=== PATIENT | male | born 1965 | race Hispanic/Latino ===

== ENCOUNTER 2021-10-03 10:22 | Emergency (ER) | payer BC ==
--- OUTSIDE RECORDS SUMMARY | 2021-10-03 10:29 | XMS REPORT | Continuity of Care Document ---
:1965 Author Organization [facility] t Address [address] [place] [address] Care Team Providers Name Role Phone TANA VENEGAS Attending Clinician Unavailable Shantanu Dahl DO Attending Clinician Doctor Unassigned, Name Attending Clinician Unavailable Theo HOLGUIN Attending Clinician [facility] Attending Clinician Unavailable Yesika DOZIER Attending Clinician Unavailable [facility] Attending Clinician Unavailable Laci NUÑEZ Attending Clinician Cheri Garza MD Attending Clinician CHERI GARZA Attending Clinician Unavailable Everton CARTY Attending Clinician Unavailable Shoaib Thomason MA Attending Clinician Unavailable Payers Payer Name Policy Type Policy Number Effective Date Expiration Date S ource Problems Condition Condition Condition Status Onset Resolution Last Treating Co mments Source Name Details Category Date Date Treatment Clinician Date Primary Primary Disease Active Univers osteoarthr osteoarthr 2-24 it y of itis of itis of 00:00: [place] both knees both knees 00 Fl dical Branch Right knee Right knee Disease Active U nivers pain pain 1-26 ity of 00:00: [place] 00 [facility] Branch 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 it y of ciency ciency 00:00: [place] virus virus 00 Medical infection) infection) Br anch Elevated Elevated Disease Active Unive rs serum serum 1- [place] 00 [place] Allergies, Adverse Reactions, Alerts Allergy Allergy Status Severity Reaction(s) Onset Inactive Treating Comm ents Source Name Type Date Date Clinician NO KNOWN Drug Active Univers ALLERGIE Class ity of S [facility] Social History Social Habit Start Date Stop Date Quantity Comments Source Exposure to Not sure University of SARS-CoV-2 [facility] (event) Branch Tobacco use and 2020-03-13 2020-03-13 Never used Universit y of exposure 00:00:00 00:00:00 [facility] Alcohol intake 2020-03-13 2020-03-13 Current drinker Unive rsity of 00:00:00 00:00:00 of alcohol [facility] (finding) [place] Alcohol Comment 2015-09-05 2015-09-05 drinks case of Unive rsity of 00:00:00 00:00:00 beer on weekends [facility] dical [place] Tobacco Comment 2006-05-13 2006-05-13 social Universit y of 00:00:00 00:00:00 [facility] History of 2006-02-04 Smoker University of tobacco use 00:00:00 [facility] [birth year] Universit y of 00:00:00 00:00:00 [facility] Smoking Status Start Date Stop Date Source Former smoker 2020-03-13 00:00:00 2020-03-13 00:00:00 Universi ty of [facility] Medications Ordered Filled Start Stop Current Ordering Indication Dosage Frequency Signature Comments Components Source Medication Medication Date Date Medication? Clinician (SIG) Name Name esomeprazol 2019-08 Yes 40mg Take 1 Univ ers e (NEXIUM) 0-23 capsule by ity of 40 mg 00:00: mouth [place] capsule 00 daily with Medica l breakfast. Branch darunavir-c 2019-08 Yes [id number] 1 tablet Univers obicistat 0-23 po once ity of (PREZCOBIX) 00:00: daily with [place] 800-150 00 food Medical mg-mg per Branch tablet emtricitabi 2019-08 Yes [id number] 1{tbl} Take 1 Univers ne-tenofovi 0-23 tablet by ity of r alafen 00:00: mouth [place] (DESCOVY) 00 daily. Medical tablet Branch esomeprazol 2019-08 Yes 40mg Take 1 Univ ers e (NEXIUM) 0-23 capsule by ity of 40 mg 00:00: mouth [place] capsule 00 daily with Medica l breakfast. Branch darunavir-c 2019-08 Yes [id number] 1 tablet Univers obicistat 0-23 po once ity of (PREZCOBIX) 00:00: daily with [place] 800-150 00 food Medical mg-mg per Branch tablet emtricitabi 2019-08 Yes [id number] 1{tbl} Take 1 Univers ne-tenofovi 0-23 tablet by ity of r alafen 00:00: mouth [place] (DESCOVY) 00 daily. Medical tablet Branch esomeprazol 2019-08 Yes 40mg Take 1 Univ ers e (NEXIUM) 0-23 capsule by ity of 40 mg 00:00: mouth [place] capsule 00 daily with Medica l breakfast. Branch darunavir-c 2019-08 Yes [id number] 1 tablet Univers obicistat 0-23 po once ity of (PREZCOBIX) 00:00: daily with [place] 800-150 00 food Medical mg-mg per Branch tablet emtricitabi 2019-08 Yes [id number] 1{tbl} Take 1 Univers ne-tenofovi 0-23 tablet by ity of r alafen 00:00: mouth [place] (DESCOVY) 00 daily. Medical tablet Branch esomeprazol 2019-08 Yes [id number] 40mg Take 40 mg Univers e (NEXIUM 0-21 by mouth ity of PACKET) 40 00:00: daily with [place] mg packet 00 breakfast. [facility] Branch esomeprazol 2019-08 2020- No [id number] 40mg Take 40 mg Univers e (NEXIUM 0-21 10-23 by mouth ity o f PACKET) 40 00:00: 00:00 daily with [place] mg packet 00 :00 breakfast. [facility] Branch esomeprazol 2019-08 2020- No [id number] 40mg Take 40 mg Univers e (NEXIUM 0-21 10-23 by mouth ity o f PACKET) 40 00:00: 00:00 daily with [place] mg packet 00 :00 breakfast. [facility] Branch esomeprazol 2019-08 2020- No [id number] 40mg Take 40 mg Univers e (NEXIUM 0-21 10-23 by mouth ity o f PACKET) 40 00:00: 00:00 daily with [place] mg packet 00 :00 breakfast. [facility] Branch hyaluronate 2020- No 3mL Unive rs sodium, 01-20 ity of stabilized 20:15: 19:13 [place] (DUROLANE) 00 :00 Medical intra-artic Branch ular injection 3 mL hyaluronate 2019- No 3mL Unive rs sodium, 6-05 06-05 ity of stabilized 20:15: 19:13 [place] (DUROLANE) 00 :00 Medical intra-artic Branch ular injection 3 mL hyaluronate 2020-0 2020- No 3mL 3 mL, Univ ers sodium, - 06-05 Intra-greg ity o f stabilized 20:15: 19:13 [place] (DUROLANE[place] 00 :00 ONCE, 1 Medica l intra-artic dose, Fri Bra nch ular 01/21/20 at injection 3 1515, mL Routine hyaluronate 2020-0 2020- No 3mL 3 mL, Univ ers sodium, - 06-05 Intra-greg ity o f stabilized 20:15: 19:13 [place], [place] (DUROLANE[place] 00 :00 ONCE, 1 Medica l intra-artic dose, Fri Bra nch ular 01/21/20 at injection 3 1515, mL Routine hyaluronate 2020-0 2020- No 3mL Unive rs sodium, -12 21-05 ity of stabilized 20:15: 19:13 [place] (DUROLANE) 00 :00 Medical intra-artic Branch ular injection 3 mL hyaluronate 2020-0 2020- No 3mL Unive rs sodium, 01-20-05 ity of stabilized 20:15: 19:13 [place] (DUROLANE) 00 :00 Medical intra-artic Branch ular injection 3 mL hyaluronate 2020-0 2020- No 3mL 3 mL, Univ ers sodium, - 06-05 Intra-greg ity o f stabilized 20:15: 19:13 [place] (DUROLANE[place] 00 :00 ONCE, 1 Medica l intra-artic dose, Fri Bra nch ular 01/21/20 at injection 3 1515, mL Routine hyaluronate 2020-0 2020- No 3mL 3 mL, Univ ers sodium, - 06-05 Intra-greg ity o f stabilized 20:15: 19:13 [place], [place] (DUROLANE[place] 00 :00 ONCE, 1 Medica l intra-artic dose, Fri Bra nch ular 01/21/20 at injection 3 1515, mL Routine hyaluronate 2020-0 2020- No 3mL Unive rs sodium, - 06-05 ity of stabilized 20:15: 19:13 [place] (DUROLANE) 00 :00 Medical intra-artic Branch ular injection 3 mL hyaluronate 2020-0 2020- No 3mL Unive rs sodium, 6- 06-05 ity of stabilized 20:15: 19:13 [place] (DUROLANE) 00 :00 Medical intra-artic Branch ular injection 3 mL hyaluronate 2020-0 2020- No 3mL 3 mL, Univ ers sodium, - 06-05 Intra-greg ity o f stabilized 20:15: 19:13 [place]ular, [place] (DUROLANE[place] 00 :00 ONCE, 1 Medica l intra-artic dose, Fri Bra nch ular 01/21/20 at injection 3 1515, mL Routine hyaluronate 2020-0 2020- No 3mL 3 mL, Univ ers sodium, - 06-05 Intra-greg ity o f stabilized 20:15: 19:13 [place], [place] (DUROLANE[place] 00 :00 ONCE, 1 Medica l intra-artic dose, Fri Bra nch ular 01/21/20 at injection 3 1515, mL Routine hyaluronate 2020-0 2020- No 3mL Unive rs sodium, -12 21-05 ity of stabilized 20:15: 19:13 [place] (DUROLANE) 00 :00 Medical intra-artic Branch ular injection 3 mL hyaluronate 2020-0 2020- No 3mL Unive rs sodium, -12 21-05 ity of stabilized 20:15: 19:13 [place] (DUROLANE) 00 :00 Medical intra-artic Branch ular injection 3 mL hyaluronate 2020-0 2020- No 3mL 3 mL, Univ ers sodium, - 06-05 Intra-greg ity o f stabilized 20:15: 19:13 [place], [place] (DUROLANE) 00 :00 ONCE, 1 Medica l intra-artic dose, Fri Bra nch ular 01/21/20 at injection 3 1515, mL Routine hyaluronate 2020-0 2020- No 3mL 3 mL, Univ ers sodium, - 06-05 Intra-greg ity o f stabilized 20:15: 19:13 [place], [place] (DUROLANE) 00 :00 ONCE, 1 Medica l intra-artic dose, Fri Bra nch ular 6/5/20 at injection 3 1515, mL Routine darunavir-c 2020-0 Yes [id number] 1 tablet Univers obicistat 4-09 po once ity of (PREZCOBIX) 00:00: daily with [place] 800-150 00 food Medical mg-mg per Branch tablet emtricitabi 2020-0 Yes [id number] 1{tbl} Take 1 Univers ne-tenofovi 4-09 tablet by ity of r alafen 00:00: mouth [place] (DESCOVY) 00 daily. Medical tablet Branch darunavir-c 2020-0 Yes [id number] 1 tablet Univers obicistat 4-09 po once ity of (PREZCOBIX) 00:00: daily with [place] 800-150 00 food Medical mg-mg per Branch tablet emtricitabi 2020-0 Yes [id number] 1{tbl} Take 1 Univers ne-tenofovi 4-09 tablet by ity of r alafen 00:00: mouth [place] (DESCOVY) 00 daily. Medical tablet Branch darunavir-c 2020-0 Yes [id number] 1 tablet Univers obicistat 4-09 po once ity of (PREZCOBIX) 00:00: daily with [place] 800-150 00 food Medical mg-mg per Branch tablet emtricitabi 2020-0 Yes [id number] 1{tbl} Take 1 Univers ne-tenofovi 4-09 tablet by ity of r alafen 00:00: mouth [place] (DESCOVY) 00 daily. Medical tablet Branch darunavir-c 2020-0 Yes [id number] 1 tablet Univers obicistat 4-09 po once ity of (PREZCOBIX) 00:00: daily with [place] 800-150 00 food Medical mg-mg per Branch tablet emtricitabi 2020-0 Yes [id number] 1{tbl} Take 1 Univers ne-tenofovi 4-09 tablet by ity of r alafen 00:00: mouth [place] (DESCOVY) 00 daily. Medical tablet Branch darunavir-c 2020-0 Yes [id number] 1 tablet Univers obicistat 4-09 po once ity of (PREZCOBIX) 00:00: daily with [place] 800-150 00 food Medical mg-mg per Branch tablet emtricitabi 2020-0 Yes [id number] 1{tbl} Take 1 Univers ne-tenofovi 4-09 tablet by ity of r alafen 00:00: mouth [place] (DESCOVY) 00 daily. Medical tablet Branch darunavir-c 2020-0 Yes [id number] 1 tablet Univers obicistat 4-09 po once ity of (PREZCOBIX) 00:00: daily with [place] 800-150 00 food Medical mg-mg per Branch tablet emtricitabi 2020-0 Yes [id number] 1{tbl} Take 1 Univers ne-tenofovi 4-09 tablet by ity of r alafen 00:00: mouth [place] (DESCOVY) 00 daily. Medical tablet Branch darunavir-c 2020-0 Yes [id number] 1 tablet Univers obicistat 4-09 po once ity of (PREZCOBIX) 00:00: daily with [place] 800-150 00 food Medical mg-mg per Branch tablet emtricitabi 2020-0 Yes [id number] 1{tbl} Take 1 Univers ne-tenofovi 4-09 tablet by ity of r alafen 00:00: mouth [place] (DESCOVY) 00 daily. Medical tablet Branch darunavir-c 2020-0 Yes [id number] 1 tablet Univers obicistat 4-09 po once ity of (PREZCOBIX) 00:00: daily with [place] 800-150 00 food Medical mg-mg per Branch tablet emtricitabi 2020-0 Yes [id number] 1{tbl} Take 1 Univers ne-tenofovi 4-09 tablet by ity of r alafen 00:00: mouth [place] (DESCOVY) 00 daily. Medical tablet Branch darunavir-c 2020-0 Yes [id number] 1 tablet Univers obicistat 4-09 po once ity of (PREZCOBIX) 00:00: daily with [place] 800-150 00 food Medical mg-mg per Branch tablet emtricitabi 2020-0 Yes [id number] 1{tbl} Take 1 Univers ne-tenofovi 4-09 tablet by ity of r alafen 00:00: mouth [place] (DESCOVY) 00 daily. Medical tablet Branch darunavir-c 2020-0 Yes [id number] 1 tablet Univers obicistat 4-09 po once ity of (PREZCOBIX) 00:00: daily with [place] 800-150 00 food Medical mg-mg per Branch tablet emtricitabi 2020-0 Yes [id number] 1{tbl} Take 1 Univers ne-tenofovi - tablet by ity of r alafen 00:00: mouth [place] (DESCOVY) 00 daily. Medical tablet Branch darunavir-c 2020-0 2020- No [id number] 1 tablet Univers obicistat 11-24- po once ity of (PREZCOBIX) 00:00: 00:00 daily with [place] 800-150 00 :00 food Medical mg-mg per Branch tablet emtricitabi 2020-0 2020- No [id number] 1{tbl} Take 1 Univers ne-tenofovi 11-24 tablet by it y of r alafen 00:00: 00:00 mouth [place] (DESCOVY) 00 :00 daily. Medical tablet Branch darunavir-c 2019-0 2020- No [id number] 1 tablet Univers obicistat 11-24 po once ity of (PREZCOBIX) 00:00: 00:00 daily with [place] 800-150 00 :00 food Medical mg-mg per Branch tablet emtricitabi 2020-0 2020- No [id number] 1{tbl} Take 1 Univers ne-tenofovi 11-24 tablet by it y of r alafen 00:00: 00:00 mouth [place] (DESCOVY) 00 :00 daily. Medical tablet Branch darunavir-c 2019-0 2020- No [id number] 1 tablet Univers obicistat 11-24 po once ity of (PREZCOBIX) 00:00: 00:00 daily with [place] 800-150 00 :00 food Medical mg-mg per Branch tablet emtricitabi 2020-0 2020- No [id number] 1{tbl} Take 1 Univers ne-tenofovi 11-24 tablet by it y of r alafen 00:00: 00:00 mouth [place] (DESCOVY) 00 :00 daily. Medical tablet Branch darunavir-c 2020-0 Yes [id number] 800mg Take 800 Univers obi-emtri-t 4-08 mg by ity of enof ala 00:00: mouth [place] (SYMTUZA) 00 daily. Medical 800-150-200 Take one Bran ch -10 mg Tab 800/150/20 0/10 mg tablet once daily with food darunavir-c 2020-0 2020- No [id number] 800mg Take 800 Univers obi-emtri-t 4-08 04-09 mg by ity of enof ala 00:00: 00:00 mouth [place] (SYMTUZA) 00 :00 daily. Medical 800-150-200 Take one Bran ch -10 mg Tab 800/150/20 0/10 mg tablet once daily with food sulfamethox 2020-0 Yes [id number] 1 po once Univers azole-trime 3-31 daily ity of thoprim 00:00: Friday [place] (BACTRIM 00 through Medical DS) 800-160 Friday Branch mg per tablet sulfamethox 2020-0 Yes [id number] 1 po once Univers azole-trime 3-31 daily ity of thoprim 00:00: Friday [place] (BACTRIM 00 through Medical DS) 800-160 Friday Branch mg per tablet sulfamethox 2020-0 Yes [id number] 1 po once Univers azole-trime 3-31 daily ity of thoprim 00:00: Friday [place] (BACTRIM 00 through Medical DS) 800-160 Friday Branch mg per tablet sulfamethox 2020-0 2020- No [id number] 1 po once Univers azole-trime 3-31 05-22 daily ity of thoprim 00:00: 00:00 Friday [place] (BACTRIM 00 :00 through Medical DS) 800-160 Friday Branch mg per tablet methylPREDN 2020-0 2020- No 80mg Unive rs ISolone 10-31 ity of acetate 20:00: 18:48 [place] (DEPO-MEDRO 00 :00 Medical L) Branch injection 80 mg methylPREDN 2020-0 2020- No 80mg Unive rs ISolone 10-31 ity of acetate 20:00: 18:47 [place] (DEPO-MEDRO 00 :00 Medical L) Branch injection 80 mg methylPREDN 2020-0 2020- No 80mg 80 mg, Uni vers ISolone 10-31 Intramuscu ity o f acetate 20:00: 18:47 [place], ONCE, [place] (DEPO-MEDRO 00 :00 1 dose, Medic al L) Mon Branch injection 11/01/19 at 80 mg 1500, Routine methylPREDN 2020-0 2020- No 80mg 80 mg, Uni vers ISolone 10-31-16 Intra-greg ity o f acetate 20:00: 18:48 [place] crespo (DEPO-MEDRO 00 :00 ONCE, 1 Medic al L) dose, Mon Branch injection 11/01/19 at 80 mg 1500, Routine elviteg-cob 2018- Yes [id number] 1 po once Univers -emtri-teno 2-27 daiy ity of f ALAFEN 00:00: [place] (GENVOYA) 00 Medical 150-150-200 Branch -10 mg per tablet elviteg-cob 2018- Yes [id number] 1 po once Univers -emtri-teno 2-27 daiy ity of f ALAFEN 00:00: [place] (GENVOYA) 00 Medical 150-150-200 Branch -10 mg per tablet elviteg-cob 2018- Yes [id number] 1 po once Univers -emtri-teno 2-27 daiy ity of f ALAFEN 00:00: [place] (GENVOYA) 00 Medical 150-150-200 Branch -10 mg per tablet elviteg-cob 2018- Yes [id number] 1 po once Univers -emtri-teno 2-27 daiy ity of f ALAFEN 00:00: [place] (GENVOYA) 00 Medical 150-150-200 Branch -10 mg per tablet elviteg-cob 2018- Yes [id number] 1 po once Univers -emtri-teno 2-27 daiy ity of f ALAFEN 00:00: [place] (GENVOYA) 00 Medical 150-150-200 Branch -10 mg per tablet elviteg-cob 2018- Yes [id number] 1 po once Univers -emtri-teno 2-27 daiy ity of f ALAFEN 00:00: [place] (GENVOYA) 00 Medical 150-150-200 Branch -10 mg per tablet elviteg-cob 2018- Yes [id number] 1 po once Univers -emtri-teno 2-27 daiy ity of f ALAFEN 00:00: [place] (GENVOYA) 00 Medical 150-150-200 Branch -10 mg per tablet elviteg-cob 2018- Yes [id number] 1 po once Univers -emtri-teno 2-27 daiy ity of f ALAFEN 00:00: [place] (GENVOYA) 00 Medical 150-150-200 Branch -10 mg per tablet elviteg-cob 2018-08 Yes [id number] 1 po once Univers -emtri-teno 2-27 daiy ity of f ALAFEN 00:00: [place] [facility] Medical 150-150-200 Branch -10 mg per tablet elviteg-cob 2018-08 2020- No [id number] 1 po once Univers -emtri-teno 2-27 04-08 daiy ity of f ALAFEN 00:00: 00:00 [place] [facility] 00 :00 Medical 150-150-200 Branch -10 mg per tablet elviteg-cob 2018-08 2020- No [id number] 1 po once Univers -emtri-teno 2-27 04-08 daiy ity of f ALAFEN 00:00: 00:00 [place] [facility] 00 :00 Medical 150-150-200 Branch -10 mg per tablet elviteg-cob 2018-08 2020- No [id number] 1 po once Univers -emtri-teno 2-27 04-08 daiy ity of f ALAFEN 00:00: 00:00 [place] [facility] 00 :00 Medical 150-150-200 Branch -10 mg per tablet esomeprazol 2019-0 Yes [id number] 40mg Take 40 mg Univers e (NEXIUM 4-10 by mouth ity of PACKET) 40 00:00: daily with [place] mg packet 00 breakfast. [facility] esomeprazol 2019-0 Yes [id number] 40mg Take 40 mg Univers e (NEXIUM 4-10 by mouth ity of PACKET) 40 00:00: daily with [place] mg packet 00 breakfast. [facility] esomeprazol 2018-0 Yes [id number] 40mg Take 40 mg Univers e (NEXIUM 4-10 by mouth ity of PACKET) 40 00:00: daily with [place] mg packet 00 breakfast. [facility] esomeprazol 2018-0 Yes [id number] 40mg Take 40 mg Univers e (NEXIUM 4-10 by mouth ity of PACKET) 40 00:00: daily with [place] mg packet 00 breakfast. [facility] esomeprazol 0 Yes [id number] 40mg Take 40 mg Univers e (NEXIUM 4-10 by mouth ity of PACKET) 40 00:00: daily with [place] mg packet 00 breakfast. [facility] esomeprazol 0 Yes [id number] 40mg Take 40 mg Univers e (NEXIUM 4-10 by mouth ity of PACKET) 40 00:00: daily with [place] mg packet 00 breakfast. [facility] esomeprazol 0 Yes [id number] 40mg Take 40 mg Univers e (NEXIUM 4-10 by mouth ity of PACKET) 40 00:00: daily with [place] mg packet 00 [facility]. [id number] 40mg Take 40 mg Univers e (NEXIUM 4-10 by mouth ity of PACKET) 40 00:00: daily with [place] mg packet 00 breakfast. [facility] [id number] 40mg Take 40 mg Univers e (NEXIUM 4-10 by mouth ity of PACKET) 40 00:00: daily with [place] mg packet 00 breakfast. [facility] [id number] 40mg Take 40 mg Univers e (NEXIUM 4-10 by mouth ity of PACKET) 40 00:00: daily with [place] mg packet 00 breakfast. [facility] [id number] 40mg Take 40 mg Univers e (NEXIUM 4-10 by mouth ity of PACKET) 40 00:00: daily with [place] mg packet 00 breakfast. [facility] esomeprazol 0 Yes [id number] 40mg Take 40 mg Univers e (NEXIUM 4-10 by mouth ity of PACKET) 40 00:00: daily with [place] mg packet 00 breakfast. [facility] esomeprazol 0 Yes [id number] 40mg Take 40 mg Univers e (NEXIUM 4-10 by mouth ity of PACKET) 40 00:00: daily with [place] mg packet 00 breakfast. [facility] esomeprazol 2018- Yes [id number] 40mg Take 40 mg Univers e (NEXIUM 4-10 by mouth ity of PACKET) 40 00:00: daily with [place] mg packet 00 breakfast. [facility] [id number] 40mg Take 40 mg Univers e (NEXIUM 4-10 by mouth ity of PACKET) 40 00:00: daily with [place] mg packet 00 breakfast. [facility] [id number] 40mg Take 40 mg Univers e (NEXIUM 4-10 by mouth ity of PACKET) 40 00:00: daily with [place] mg packet 00 breakfast. [facility] [id number] 40mg Take 40 mg Univers e (NEXIUM 4-10 by mouth ity of PACKET) 40 00:00: daily with [place] mg packet 00 [facility]. [facility] [id number]mg Take 40 mg Univers e (NEXIUM 4-10 by mouth ity of PACKET) 40 00:00: daily with [place] mg packet 00 [facility]. [facility] [id number] 40mg Take 40 mg Univers e (NEXIUM 4-10 by mouth ity of PACKET) 40 00:00: daily with [place] mg packet 00 breakfast. [facility] [id number] 40mg Take 40 mg Univers e (NEXIUM 4-10 by mouth ity of PACKET) 40 00:00: daily with [place] mg packet 00 breakfast. [facility] [id number] 40mg Take 40 mg Univers e (NEXIUM 4-10 by mouth ity of PACKET) 40 00:00: daily with [place] mg packet 00 breakfast. [facility] esomeprazol 2020- No [id number] 40mg Take 40 mg Univers e (NEXIUM 4-10 10-21 by mouth ity o f PACKET) 40 00:00: 00:00 daily with [place] mg packet 00 :00 breakfast. [facility] esomeprazol 2020- No [id number] 40mg Take 40 mg Univers e (NEXIUM 4-10 10-21 by mouth ity o f PACKET) 40 00:00: 00:00 daily with [place] mg packet 00 :00 breakfast. [facility] ranitidine Yes 1 po at [facility] ers 300 mg 7-20 bedtime ity of tablet 00:00: Medical Branch ranitidine 2018-0 Yes 1 po at Univ ers 300 mg 7-20 bedtime ity of tablet 00:00: Medical Branch ranitidine 2018-0 Yes 1 po at Univ ers 300 mg 7-20 bedtime ity of tablet 00:00: Medical Branch ranitidine 2018-0 Yes 1 po at Univ ers 300 mg 7-20 bedtime ity of tablet 00:00: Medical Branch ranitidine 2018-0 Yes 1 po at Univ ers 300 mg 7-20 bedtime ity of tablet 00:00: Medical Branch ranitidine 2018-0 Yes 1 po at Univ ers 300 mg 7-20 bedtime ity of tablet 00:00: Medical Branch ranitidine 2018-0 Yes 1 po at Univ ers 300 mg 7-20 bedtime ity of tablet 00:00: Medical Branch ranitidine 2018-0 Yes 1 po at Univ ers 300 mg 7-20 bedtime ity of tablet 00:00: Medical Branch ranitidine 2018-0 Yes 1 po at Univ ers 300 mg 7-20 bedtime ity of tablet 00:00: Medical Branch ranitidine 2018-0 2020- No 1 po at Uni vers 300 mg 7-20 04-08 bedtime ity of tablet 00:00: 00:00 [place] 00 :00 Medical Branch ranitidine 2018-0 2020- No 1 po at Uni vers 300 mg 7-20 04-08 bedtime ity of tablet 00:00: 00:00 [place] 00 :00 Medical Branch ranitidine 2018-0 2020- No 1 po at Uni vers 300 mg 7-20 04-08 bedtime ity of tablet 00:00: 00:00 [place] 00 :00 Medical Branch No known No Univers medications ity of [facility] Immunizations Ordered Filled Immunization Date Status Comments Sour e Immunization Name Name Influenza Virus 2020-06-07 Completed Universit y of Vaccine Recomb Quad 00:00:00 [place] Medical IM, Preserv and ABX Branc h Free 18-64 YRS Influenza Virus 2020-06-07 Completed Universit y of Vaccine Recomb Quad 00:00:00 [place] Medical IM, Preserv and ABX Branc h Free 18-64 YRS Influenza Virus 2020-06-07 Completed Universit y of Vaccine Recomb Quad 00:00:00 [place] Medical IM, Preserv and ABX Branc h Free 18-64 YRS Influenza Virus 2020-06-07 Completed Universit y of Vaccine Recomb Quad 00:00:00 [place] Medical IM, Preserv and ABX Branc h Free 18-64 YRS Influenza Virus 2020-06-07 Completed Universit y of Vaccine Recomb Quad 00:00:00 [place] Medical IM, Preserv and ABX Branc h Free 18-64 YRS Influenza Virus 2020-06-07 Completed Universit y of Vaccine Recomb Quad 00:00:00 [place] Medical IM, Preserv and ABX Branc h Free 18-64 YRS Influenza Virus 2020-06-07 Completed Universit y of Vaccine Recomb Quad 00:00:00 [place] Medical IM, Preserv and ABX Branc h Free 18-64 YRS Pneumococcal 13 2015-09-12 Completed Universit y of Conjugate, PCV13 00:00:00 [place] Me dical (Prevnar 13) Branch Twinrix (hep a/hep 2015-09-12 Completed Univer sity of b) 00:00:00 [facility] Pneumococcal 13 2015-09-12 Completed Universit y of Conjugate, PCV13 00:00:00 [facility] dical (Prevnar 13) Branch Twinrix (hep a/hep 2015-09-12 Completed Univer sity of b) 00:00:00 [facility] Pneumococcal 13 2015-09-12 Completed Universit y of Conjugate, PCV13 00:00:00 [facility] dical (Prevnar 13) Branch Twinrix (hep a/hep 2015-09-12 Completed Univer sity of b) 00:00:00 [facility] Pneumococcal 13 2015-09-12 Completed Universit y of Conjugate, PCV13 00:00:00 [facility] dical (Prevnar 13) Branch Twinrix (hep a/hep 2015-09-12 Completed Univer sity of b) 00:00:00 [facility] Pneumococcal 13 2015-09-12 Completed Universit y of Conjugate, PCV13 00:00:00 [facility] dical (Prevnar 13) Branch Twinrix (hep a/hep 2015-09-12 Completed Univer sity of b) 00:00:00 [facility] Pneumococcal 13 2015-09-12 Completed Universit y of Conjugate, PCV13 00:00:00 [facility] dical (Prevnar 13) Branch Pneumococcal 13 2015-09-12 Completed Universit y of Conjugate, PCV13 00:00:00 [facility] dical (Prevnar 13) Branch Twinrix (hep a/hep 2015-09-12 Completed Univer sity of b) 00:00:00 [facility] Branch Twinrix (hep a/hep 2015-09-12 Completed Univer sity of b) 00:00:00 [facility] Pneumococcal 13 2015-09-12 Completed Universit y of Conjugate, PCV13 00:00:00 [facility] dical (Prevnar 13) Branch Twinrix (hep a/hep 2015-09-12 Completed Univer sity of b) 00:00:00 [facility] Branch Pneumococcal 13 2015-09-12 Completed Universit y of Conjugate, PCV13 00:00:00 [facility] dical (Prevnar 13) Branch Twinrix (hep a/hep 2015-09-12 Completed Univer sity of b) 00:00:00 [facility] Pneumococcal 13 2015-09-12 Completed Universit y of Conjugate, PCV13 00:00:00 [facility] dical (Prevnar 13) Branch Twinrix (hep a/hep 2015-09-12 Completed Univer sity of b) 00:00:00 [facility] Pneumococcal 13 2015-09-12 Completed Universit y of Conjugate, PCV13 00:00:00 [facility] dical (Prevnar 13) Branch Twinrix (hep a/hep 2015-09-12 Completed Univer sity of b) 00:00:00 [facility] Pneumococcal 13 2015-09-12 Completed Universit y of Conjugate, PCV13 00:00:00 [facility] dical (Prevnar 13) Branch Twinrix (hep a/hep 2015-09-12 Completed Univer sity of b) 00:00:00 [facility] Pneumococcal 13 2015-09-12 Completed Universit y of Conjugate, PCV13 00:00:00 [facility] dical (Prevnar 13) Branch Twinrix (hep a/hep 2015-09-12 Completed Univer sity of b) 00:00:00 [facility] Pneumococcal 13 2015-09-12 Completed Universit y of Conjugate, PCV13 00:00:00 [facility] dical (Prevnar 13) Branch Twinrix (hep a/hep 2015-09-12 Completed Univer sity of b) 00:00:00 [facility] Pneumococcal 13 2015-09-12 Completed Universit y of Conjugate, PCV13 00:00:00 [facility]ical (Prevnar 13) Branch Twinrix (hep a/hep 2015-09-12 Completed Univer sity of b) 00:00:00 [facility] Pneumococcal 13 2015-09-12 Completed Universit y of Conjugate, PCV13 00:00:00 [facility] dical (Prevnar 13) Branch Twinrix (hep a/hep 2015-09-12 Completed Univer sity of b) 00:00:00 [facility] Pneumococcal 13 2015-09-12 Completed Universit y of Conjugate, PCV13 00:00:00 [facility] dical (Prevnar 13) Branch Twinrix (hep a/hep 2015-09-12 Completed Univer sity of b) 00:00:00 [facility] Pneumococcal 13 2015-09-12 Completed Universit y of Conjugate, PCV13 00:00:00 [facility] dical (Prevnar 13) Branch Twinrix (hep a/hep 2015-09-12 Completed Univer sity of b) 00:00:00 [facility] Pneumococcal 13 2015-09-12 Completed Universit y of Conjugate, PCV13 00:00:00 [facility] dical (Prevnar 13) Branch Twinrix (hep a/hep 2015-09-12 Completed Univer sity of b) 00:00:00 [facility] Pneumococcal 13 2015-09-12 Completed Universit y of Conjugate, PCV13 00:00:00 [facility] dical (Prevnar 13) Branch Twinrix (hep a/hep 2015-09-12 Completed Univer sity of b) 00:00:00 [facility] Pneumococcal 13 2015-09-12 Completed Universit y of Conjugate, PCV13 00:00:00 [facility] dical (Prevnar 13) Branch Pneumococcal 13 2015-09-12 Completed Universit y of Conjugate, PCV13 00:00:00 [facility] dical (Prevnar 13) Branch Twinrix (hep a/hep 2015-09-12 Completed Univer sity of b) 00:00:00 [facility] Twinrix (hep a/hep 2015-09-12 Completed Univer sity of b) 00:00:00 [facility] Pneumococcal 13 2015-09-12 Completed Universit y of Conjugate, PCV13 00:00:00 [facility] (Prevnar 13) Branch Twinrix (hep a/hep 2015-09-12 Completed Univer sity of b) 00:00:00 [facility] Pneumococcal 13 2015-09-12 Completed Universit y of Conjugate, PCV13 00:00:00 [place] [facility] (Prevnar 13) Branch Twinrix (hep a/hep 2015-09-12 Completed Univer sity of b) 00:00:00 [facility] Pneumococcal 13 2015-09-12 Completed Universit y of Conjugate, PCV13 00:00:00 [facility] dical (Prevnar 13) Branch Twinrix (hep a/hep 2015-09-12 Completed Univer sity of b) 00:00:00 [facility] Pneumococcal 13 2015-09-12 Completed Universit y of Conjugate, PCV13 00:00:00 [facility] dical (Prevnar 13) Branch Twinrix (hep a/hep 2015-09-12 Completed Univer sity of b) 00:00:00 [facility] Pneumococcal 13 2015-09-12 Completed Universit y of Conjugate, PCV13 00:00:00 [facility] dical (Prevnar 13) Branch Twinrix (hep a/hep 2015-09-12 Completed Univer sity of b) 00:00:00 [facility] Pneumococcal 13 2015-09-12 Completed Universit y of Conjugate, PCV13 00:00:00 [facility] dical (Prevnar 13) Branch Twinrix (hep a/hep 2015-09-12 Completed Univer sity of b) 00:00:00 [facility] Influenza Virus 2015-08-01 Completed Universit y of Vaccine Quad IM 3+ 00:00:00 [facility] Influenza Virus 2015-08-01 Completed Universit y of Vaccine Quad IM 3+ 00:00:00 [facility] Influenza Virus 2015-08-01 Completed Universit y of Vaccine Quad IM 3+ 00:00:00 [facility] Influenza Virus 2015-08-01 Completed Universit y of Vaccine Quad IM 3+ 00:00:00 [facility] Influenza Virus 2015-08-01 Completed Universit y of Vaccine Quad IM 3+ 00:00:00 [facility] Influenza Virus 2015-08-01 Completed Universit y of Vaccine Quad IM 3+ 00:00:00 [facility] Influenza Virus 2015-08-01 Completed Universit y of Vaccine Quad IM 3+ 00:00:00 [facility] Influenza Virus 2015-08-01 Completed Universit y of Vaccine Quad IM 3+ 00:00:00 [facility] Branch Influenza Virus 2015-08-01 Completed Universit y of Vaccine Quad IM 3+ 00:00:00 [facility] Influenza Virus 2015-08-01 Completed Universit y of Vaccine Quad IM 3+ 00:00:00 [facility] Branch Influenza Virus 2015-08-01 Completed Universit y of Vaccine Quad IM 3+ 00:00:00 [facility] Influenza Virus 2015-08-01 Completed Universit y of Vaccine Quad IM 3+ 00:00:00 [facility] Influenza Virus 2015-08-01 Completed Universit y of Vaccine Quad IM 3+ 00:00:00 [facility] Influenza Virus 2015-08-01 Completed Universit y of Vaccine Quad IM 3+ 00:00:00 [facility] Influenza Virus 2015-08-01 Completed Universit y of Vaccine Quad IM 3+ 00:00:00 [facility] Influenza Virus 2015-08-01 Completed Universit y of Vaccine Quad IM 3+ 00:00:00 [facility] Influenza Virus 2015-08-01 Completed Universit y of Vaccine Quad IM 3+ 00:00:00 [facility] Branch Influenza Virus 2015-08-01 Completed Universit y of Vaccine Quad IM 3+ 00:00:00 [facility] Influenza Virus 2015-08-01 Completed Universit y of Vaccine Quad IM 3+ 00:00:00 [facility] Influenza Virus 2015-08-01 Completed Universit y of Vaccine Quad IM 3+ 00:00:00 [facility] Influenza Virus 2015-08-01 Completed Universit y of Vaccine Quad IM 3+ 00:00:00 [facility] Influenza Virus 2015-08-01 Completed Universit y of Vaccine Quad IM 3+ 00:00:00 [facility] Influenza Virus 2015-08-01 Completed Universit y of Vaccine Quad IM 3+ 00:00:00 [facility] Influenza Virus 2015-08-01 Completed Universit y of Vaccine Quad IM 3+ 00:00:00 [facility] Influenza Virus 2015-08-01 Completed Universit y of Vaccine Quad IM 3+ 00:00:00 [facility] Influenza Virus 2015-08-01 Completed Universit y of Vaccine Quad IM 3+ 00:00:00 [facility] Branch Influenza Virus 2015-08-01 Completed Universit y of Vaccine Quad IM 3+ 00:00:00 [facility] Influenza Virus 2015-08-01 Completed Universit y of Vaccine Quad IM 3+ 00:00:00 [facility] Vital Signs Vital Name Observation Time Observation Value Comments Source Systolic blood 2020-06-07 16:04:00 133 mm[Hg] Univer sity of pressure [facility] Diastolic blood 2020-06-07 16:04:00 86 mm[Hg] Unive rsity of pressure [facility] Heart rate 2020-06-07 16:04:00 77 /min Universi ty of [facility] Body temperature 2020-06-07 16:04:00 36.67 Dawn Univ ersity of [facility] Body height 2020-06-07 16:04:00 170.2 cm Universi ty of [facility] Body weight 2020-06-07 16:04:00 82.781 kg Universi ty of [facility] BMI 2020-06-07 16:04:00 28.58 kg/m2 Universi ty of [facility] Systolic blood 2020-03-10 13:32:00 132 mm[Hg] Univer sity of pressure [facility] Diastolic blood 2020-03-10 13:32:00 85 mm[Hg] Unive rsity of pressure [facility] Heart rate 2020-03-10 13:32:00 79 /min Universi ty of [facility] Body temperature 2020-03-10 13:32:00 36.83 Dawn Univ ersity of [facility] Body height 2020-03-10 13:32:00 170.2 cm Universi ty of [facility] Body weight 2020-03-10 13:32:00 81.647 kg [facility] ty of [facility] BMI 2020-03-10 13:32:00 28.19 kg/m2 Universi ty of [facility] Oxygen saturation in 2020-03-10 13:32:00 98 /min [facility] Arterial blood by [facility] Pulse oximetry Branch Systolic blood 2020-01-21 18:45:00 120 mm[Hg] Univer sity of pressure [facility] Diastolic blood 2020-01-21 18:45:00 65 mm[Hg] Unive rsity of pressure [facility] Heart rate 2020-01-21 18:45:00 68 /min Universi ty of [facility] Body temperature 2020-01-21 18:45:00 37 Dawn Univ ersity of [facility] Body height 2020-01-21 18:45:00 170.2 cm Universi ty of [facility] Body weight 2020-01-21 18:45:00 82.555 kg Universi ty of [facility] BMI 2020-01-21 18:45:00 28.51 kg/m2 Universi ty of [facility] Body temperature 2019-11-01 17:55:00 36.22 Dawn Univ ersity of [facility] Body height 2019-11-01 17:55:00 170.2 cm Universi ty of [facility] Body weight 2019-11-01 17:55:00 75.796 kg Universi ty of [facility] BMI 2019-11-01 17:55:00 26.17 kg/m2 Universi ty of [facility] Systolic blood 2019-11-01 15:20:00 117 mm[Hg] Univer sity of pressure [facility] Diastolic blood 2019-11-01 15:20:00 84 mm[Hg] Unive rsity of pressure [facility] Heart rate 2019-11-01 15:20:00 86 /min Universi ty of [facility] Body temperature 2019-11-01 15:20:00 36.28 Dawn Univ ersity of [facility] Respiratory rate 2019-11-01 15:20:00 16 /min Univ ersity of [facility] Body height 2019-11-01 15:20:00 170.2 cm Universi ty of [facility] Body weight 2019-11-01 15:20:00 75.297 kg [facility] BMI 2019-11-01 15:20:00 26.00 kg/m2 Universi ty of [facility] Procedures Procedure Date / Time Performing Clinician Source Performed AUTHORIZATION FOR 2020-06-22 06:01:00 Doctor Unassigned, No [facility] RELEASE OF PHI Name Medical Branch FLU VACC(), 2020-06-07 16:09:49 Tana Venegas [facility] 50-64 YRS, IM, QUAD Medical Bran ch (FLUBLOK) POCT GRP A STREP 2020-03-10 13:35:00 Nadine Aguero [facility] (MOLECULAR) Medical Branch COMP. METABOLIC PANEL 2019-11-01 16:45:00 [facility] ([id number]) Medical Branch LIPID PANEL 2019-11-01 16:45:00 [facility] ([id number])(TOTAL Medical Branch CHOLESTEROL, TRIGLYCERIDES, HDL) NOTICE OF PRIVACY 2019-11-01 14:53:05 Doctor Unassigned, No [facility] PRACTICES Name Medical Branch CONSENT/REFUSAL FOR 2019-11-01 14:52:40 Doctor Unassigned, No [facility] DIAGNOSIS AND TREATMENT Name [facility] [place] ASSIGNMENT OF BENEFITS 2019-11-01 14:52:24 Doctor Unassigned, No [facility] Name [facility] [place] Encounters Start End Encounter Admission Attending Care Care Encounter Source Date/Time Date/Time Type Type Clinicians Facility Department ID 2020-12-06 2020-12-06 Outpatient R [facility] [id number] Univers 08:00:00 08:00:00 TANA [id number] ity of [facility] 2020-10-28 2020-10-28 Patient [facility] [id number] Univers 00:00:00 00:00:00 Outreach Shantanu PRIMARY [id number] i ty of [facility] [id number] [id number] Fl dical 388 Branch 2020-06-22 2020-06-22 Orders Doctor ALIX 1.2.840.114 [id number] Univers 00:00:00 00:00:00 Only Unassigned, RAMSES [id number] ity of [place] [facility] 4.2.7.2.686 [place] as [phone] [facility] 009 Branch 2020-06-09 2020-06-09 Telephone East, UNIVERSIT 1.2.840.114 [id number] Univers 00:00:00 00:00:00 Tana [facility] [id number] i ty [id number] [id number] [facility] 089 Branch 2020-06-09 2020-06-09 Refill [place], UNIVERSIT [id number] Univers 00:00:00 00:00:00 [facility] [id number] i ty [id number] [id number] [facility] [address] [place] 2020-06-07 2020-06-07 Cardiovascular Physician Assistant [facility] UNIVERSIT [id number] Univers 12:08:57 12:23:57 [facility] [id number] [facility] [place] [id number] [facility] [address] [place] 2020-06-07 2020-06-07 Outpatient R [facility] [id number] Univers 12:00:00 12:00:00 TANA [id number] [facility] 2020-06-07 2020-06-07 Outpatient R [facility] [id number] Univers 12:00:00 12:00:00 TANA [facility] 2020-06-07 2020-06-07 Office [facility], [facility] [id number] Univers 10:35:54 11:58:29 Visit [facility] [id number] i ty [place] [id number] [facility] [address] [place] 2020-03-17 2020-03-17 Outpatient R [facility] [id number] Univers 12:45:00 12:45:00 [id number] [facility] 2020-03-17 2020-03-17 [facility] [id number] Univers 12:45:00 12:45:00 ADELIA [facility] 2020-03-13 2020-03-13 Outpatient R [facility] [id number] Univers 13:00:00 13:00:00 TANA [id number] [facility] 2020-03-13 2020-03-13 Outpatient R [facility] [id number] Univers 13:00:00 13:00:00 TANA [facility] 2020-03-10 2020-03-10 Urgent Pob1, Acute Care Clinic [facility] 1. 2.840.114 [id number] Univers 08:25:26 08:45:26 Care [facility] [id number] ity of [place] 4.2.7.2.686 [place] as Professio [phone] Fl issac collado [address] [place] Office [facility] 2020-03-10 2020-03-10 Outpatient R [facility] [id number] Univers 08:40:00 08:40:00 [id number] ity of [facility] 2020-03-10 2020-03-10 Outpatient R [facility] [id number] Univers 08:40:00 08:40:00 ity of [facility] 2020-03-10 2020-03-10 Outpatient R [facility] [id number] Univers 08:20:00 08:20:00 ity of [facility] 2020-03-10 2020-03-10 Letter Doctor ALIX 1.2.840.114 [id number] Univers 00:00:00 00:00:00 (Out) Unassigned, RAMSES [id number] ity of [place] [facility] 4.2.7.2.686 [place] [id number] [address] 2020-01-21 2020-02-16 Office [facility] [id number] Univers 13:44:55 07:08:30 Visit iSd HO 350.1.13.10 ity of [facility] [place]2.[place] C[place] AT [id number] Fl harrynicol ACHARYA [address] [place] [address] 2020-01-31 2020-01-31 Outpatient KAYLA [facility] [id number] Univers 13:00:00 13:00:00 SID Nieves ity of [facility] 2020-01-28 2020-01-28 [facility] [id number] Univers 13:00:00 13:00:00 SID Yanes ity [facility] 2020-01-28 2020-01-28 Outpatient R KAYLA [facility] [id number] Univers 13:00:00 13:00:00 SID itfiliberto [facility] 2020-01-21 2020-01-21 Outpatient R KAYLA [facility] [id number] Univers 15:40:00 15:40:00 SID itfiliberto [facility] 2020-01-21 2020-01-21 [facility] [id number] Univers 10:45:00 10:45:00 [facility] 2020-01-19 2020-01-19 [facility]phone [facility] 1.2.840.114 [id number] Univers 00:00:00 00:00:00 Sid SPECIALTY [id number] ity of [facility] [place]2.[place]2.[place] C[place] AT [id number] Fl issac ACHARYA [address] [place] [address] 2020-01-07 2020-01-07 Outpatient R [facility] [id number] Univers 08:30:00 08:30:00 TANA [id number] [facility] 2020-01-07 2020-01-07 Outpatient R [facility] [id number] Univers 08:30:00 08:30:00 TANA [facility] 2020-01-07 2020-01-07 Telemedici [facility] 1.2.840.114 [id number] Univers 07:25:46 07:55:46 ne Visit [facility] 350.1.13.10 ity of [place] [id number] [address] 2020-01-03 2020-01-03 [facility] [id number] Univers 13:10:00 13:10:00 SID [id number] [facility] 2019-11-25 2019-11-25 Telephone [facility] 1.2.840.114 [id number] Univers 00:00:00 00:00:00 [facility] HEALTH 350.1.13.10 i ty of [place] [id number] [address] 2019-11-24 2019-11-24 Telephone [facility], [facility] 1.2.840.114 [id number] Univers 00:00:00 00:00:00 [facility] HEALTH 350.1.13.10 i ty of [place] [id number] [address] 2019-11-16 2019-11-16 Telephone [facility], UNIVERSIT 1.2.840.114 [id number] Univers 00:00:00 00:00:00 Tana Ortiz [facility] 350.1.13.10 i ty of CL[place] [id number] [facility] [address] [place] 2019-11-01 2019-11-01 Cardiovascular Physician Assistant [facility] UNIVERSIT 1.2.840.114 [id number] Univers 11:11:02 14:04:05 Visit Tana Venegas [facility] 350.1.13.10 ity of CL[place] [id number] [facility] [address] [place] 2019-11-01 2019-11-01 Office Kayla [facility] [id number] Univers 12:50:34 13:48:05 Visit Sid AMADOR 350.1.13.10 it y of Cheri [facility] 4.2.7.2.[place] [id number] [facility] [address] [place] 2019-11-01 2019-11-01 Office [facility] [id number] Univers 09:56:01 11:04:40 Visit Tana Ortiz [facility] 350.1.13.10 i ty of CL[place] 4[place] [id number] [facility] [address] [place] 2019-11-01 2019-11-01 Outpatient [facility] [id number] Univers 10:00:00 10:00:00 TANA [id number] [facility] 2019-11-01 2019-11-01 Outpatient R [facility] [id number] Univers 10:00:00 10:00:00 TANA ity [facility] 2019-11-01 2019-11-01 Orders Doctor ALIX 1.2.840.114 [id number] Univers 00:00:00 00:00:00 Only Unassigned, RAMSES 350.1.13.10 ity [place] [facility] 4.2.7.2.686 [place] as [id number] [facility] [address] [place] 2019-11-01 2019-11-01 Telephone [facility], [facility] 1.2.840.114 [id number] Univers 00:00:00 00:00:00 Tana Y HEALTH 350.1.13.10 i ty [place] [id number] [address] 2019-10-07 2019-10-07 Case Paddy [facility] [id number] Univers 00:00:00 00:00:00 Management Vidhi Cramer [facility] 350.1.13.10 ity of CL[place] [id number] [address] 2019-09-14 2019-09-[address]840[address]114 [id number] Univers 00:00:00 00:00:00 Tana [facility] 350..13.10 i ty of CL[place] [id number] [address] Results Test Description Test Time Test Comments Results Result Comments Source HEMOGLOBIN A1c 2021-09-20 03:48:27 Test Item Value Reference Range Interpretation Comme nts HEMOGLOBIN A1c (test code = 44125) 5.0 % 4.2-5.6 LIPID [id number] 03:48:14 Test Item Value Reference Range Interpretation Comments CHOLESTEROL (test 138 MG/DL <200 code = 2210) TRIGLYCERIDES (test 163 MG/DL <150 H code = 2232) HDL CHOLESTEROL (test 14 MG/DL >39 L code = 2220) CALC LDL CHOL (test 98 MG/DL <100 NOTE: C ALCULATED LDL code = 2237) IS BASED ON JESENIA-NGUYEN METHOD WHICHINCLUDES ADJUSTABLE TRIGLYCERIDE:VL DL CHOLESTEROL RAT IO.THIS FACTOR VARIES B Y MEASURED TRIGLY CERIDE AND NON-HDLCHOL ESTEROL CONCENTRATIONS WITH INCREASED CALCU LATED LDL SEENIN HIGH ER TRIGLYCERIDE OR LOWER NON-HDL SPECIME NS. FOR MOREINFORMATION , SEE CLIENT ANNOUNCE MENT AT [email or web address] [email or web address] RATIO LDL/HDL 7.00 RATIO <3.55 H (test code = 2238) COMPREHENSIVE METABOLIC [id number] 03:48:14 Test Item Value Reference Range Interpretation Comments GLUCOSE (test code = 82 MG/DL 70-99 2216) BUN (test code = 17 MG/DL -2207) CREATININE (test 1.35 MG/DL 0.80-1.40 code = 2214) eGFR (2020 CKD-EPI) 62 >60 (test code = 19760) ML/MIN/1.73 CALC BUN/CREAT (test 13 RATIO 6-28 code = 2235) SODIUM (test code = 140 MEQ/L 584-097 1086) POTASSIUM (test code 4.4 MEQ/L 3.5-5.4 = 2227) CHLORIDE (test code 103 MEQ/L 95-107 = 2214) CARBON DIOXIDE (test 28 MEQ/L 19-31 code = 2205) CALCIUM (test code = 9.8 MG/DL 8.5-10.5 2208) PROTEIN, TOTAL (test 6.7 G/DL 6.1-8.3 code = 2228) ALBUMIN (test code = 3.6 G/DL 3.5-5.2 2200) CALC GLOBULIN (test 3.1 G/DL 1.9-3.7 code = 2239) CALC A/G RATIO (test 1.2 RATIO 1.0-2.6 code = 2233) BILIRUBIN, TOTAL 0.6 MG/DL See_Comment [Automated message] (test code = 2206) The syste m which generated this result transmitted ref erence range: <=1.2. T he reference range was not used to int erpret this result as normal/abnormal . ALKALINE PHOSPHATASE 137 U/L 40-123 H (test code = 2203) AST (test code = 37 U/L 9-50 2217) ALT (test code = 38 U/L 5-50 UNLE SS 2218) OTHERWISE INDIC ATED, ALL TESTING PER FORMED ATCLINICAL PATH [facility], I [place]. [address] [place] [address] LABORATORY DIRE CTOR: CORTEZ GROVER M.D. CLIA NUMBER [id number] CAP ACCREDITATION N O. [id number] CBC W/AUTO DIFF WITH [id number] 03:06:39 Test Item Value Reference Range Interpretation Comments WBC (test code = 10.0 K/UL 3.5-11.0 1001) RBC (test code = 5.31 M/UL 4.50-6.10 1002) HEMOGLOBIN (test code 14.5 G/DL 13.5-17.0 = 1003) HEMATOCRIT (test code 41.6 % 40.0-51.0 = 1004) MCV (test code = 78.3 fL 80.0-99.0 L 1005) MCH (test code = 27.3 PG 25.0-33.0 1006) MCHC (test code = 34.9 G/DL 31.0-36.0 1007) RDW (test code = 15.2 % 11.5-15.0 H 1038) NEUTROPHILS (test 66.1 % code = 1008) LYMPHOCYTES (test 21.2 % code = 1010) MONOCYTES (test code 8.5 % = 1011) EOSINOPHILS (test 2.4 % code = 1012) BASOPHILS (test code 0.8 % = 1013) IMMATURE GRANULOCYTES 1.0 % (test code = 1036) NUCLEATED RBCS (test 0.0 /100 See_Comment [Autom ated code = 1065) WBC'S message] The sy stem which generated this result transmitted reference range : 0.0. The refere nce range was not u sed to interpret th is result as normal/abnormal . PLATELET COUNT (test 397 K/UL 130-400 code = 1015) ABSOLUTE NEUTROPHILS 6.62 K/UL 1.50-7.50 (test code = 1066) ABSOLUTE LYMPHOCYTES 2.12 K/UL 1.00-4.00 (test code = 1067) ABSOLUTE MONOCYTES 0.85 K/UL 0.20-1.00 (test code = 1068) ABSOLUTE EOSINOPHILS 0.24 K/UL 0.00-0.50 (test code = 1040) ABSOLUTE BASOPHILS 0.08 K/UL 0.00-0.20 (test code = 1069) ABS IMMATURE 0.10 K/UL 0.00-0.10 GRANULOCYTES (test code = 1020) ABS NUCLEATED RBCS 0.00 K/UL 0.00-0.11 (test code = 93554) POCT GRP A STREP (MOLECULAR)2020-03-10 13:45:00 Test Item Value Reference Range Interpretation Comments POCT GP A STREP (test neg Negative - code = 29126-9) Negative SCOTT (test code = SCOTT) accurate development and interpretation of all internal controls Lab Interpretation Normal (test code = 38121-7) [facility] (46404)(TOTAL CHOLESTEROL, TRIGLYCERIDES, HDL)2019-11-01 19:51:00 Test Item Value Reference Range Interpretation Comments CHOL (test code = 191 mg/dL 120-200 0887444979) HDL (test code = 43 mg/dL >40 3925288345) HDLC RATIO (test code = See_Comment [Au tomated message] [id number]) The system FAGUO generated this result transmit keyla reference range : <=5.0. The refe rence range was not u sed to interpret th is result as normal/abnormal . TRIG (test code = 173 mg/dL 30-170 H [id number]) LDL CHOL (test code = 113 mg/dL See_Comment [Auto mated message] 05652-6) The system FAGUO generated this result transmit keyla reference range : <=160. The refe rence range was not u sed to interpret th is result as normal/abnormal . VLDL (test code = 35 mg/dL 5-60 5829622043) Lab Interpretation (test Abnormal code = 04626-4) [facility]. METABOLIC PANEL (59588)2019-11-01 19:51:00 Test Item Value Reference Range Interpretation Comments NA (test code = 135 mmol/L 135-145 3344931874) K (test code = 4.5 mmol/L 3.5-5 Slight 5561301427) hemolysis CL (test code = 99 mmol/L 98-108 0892572793) CO2 TOTAL (test code 24 mmol/L 23-31 = 3815747545) AGAP (test code = 2-16 1248027563) BUN (test code = 16 mg/dL 7-23 Slight 8916641116) hemolysis GLUCOSE (test code = 87 mg/dL 70-110 6908609016) CREATININE (test code 1.24 mg/dL 0.6-1.25 = 5178886257) TOTAL BILI (test code 1.9 mg/dL 0.1-1.1 H = 0949851224) CALCIUM (test code = 10.9 mg/dL 8.6-10.6 H 5411474550) T PROTEIN (test code 7.8 g/dL 6.3-8.2 = 3147470324) ALBUMIN (test code = 4.6 g/dL 3.5-5 2705554117) ALK PHOS (test code = 98 U/L 34-122 Slight 6916337951) hemolysis ALTv (test code = 31 U/L 5-50 1742-6) AST(SGOT) (test code 44 U/L 13-40 H Slight = 4042792108) hemolysis eGFR Calculation mL/min/1.73m2 (Non-) (test code = 6213221625) eGFR Calculation mL/min/1.73m2 () (test code = 0059604386) SCOTT (test code = SCOTT) Association of Glomerular Filtration Rate (GFR) and Staging of Kidney Disease* + -----+ --------+ +| GFR (mL/min/1.73 m2) ?| With Kidney Damage ?| ?Without Kidney Damage+ +------- +---- --+| ?>90 ?| ?Stage one ?| ? Normal ?+ ------+ ---------+--------- +| ?60-89 ?| ?Stage two ?| ? Decreased GFR ? + -----+ --------+ +| ?30-59 ?| ?Stage three ?| ? Stage three ? + -----+ --------+ +| ?15-29 ?| ?Stage four ? | ? Stage four ?+ ------+ ---------+--------- +| ?<15 (or dialysis) ? ?| ?Stage five ? | ? Stage five ?+ ------+ ---------+--------- + *Each stage assumes the associated GFR level has been in effect for at least three months. ?Stages 1 to 5, with or without kidney disease, indicate chronic kidney disease. Notes: Determination of stages one and two (with eGFR >59mL/min/1.73 m2) requires estimation of kidney damage for at least three months as defined by structural or functional abnormalities of the kidney, manifested by either:Pathological abnormalities or Markers of kidney damage (including abnormalities in the composition of the blood or urine or abnormalities in imaging tests). Lab Interpretation Abnormal (test code = 62574-3) [facility] [id number] 22:20:00 Test Item Value Reference Range Interpretation Comments Color (test code = Yellow Yellow,Straw,Pl N COLOR) yellow Clarity (test code = Clear Clear N CLAR) Specific [place] (test 1.017 1.001-1.035 N code = SPGR) pH (test code = PH) 6.5 5.0-9.0 N Ketone (test code = Negative mg/dL Negative N KET) Glucose (test code = Negative mg/dL Negative N GLUCUR) Protein (test code = 25 mg/dL Negative A PROT) Bilirubin (test code = Negative mg/dL Negative N BILI) Occult Blood (test code Negative Negative N = UDOB) Urobilinogen (test code 0.2 mg/dL 0.2-1.0 N = UROB) Nitrite (test code = Negative Negative N NIT) Leuk Esterase (test Negative Negative N code = LEUK) Micros Exam (test code Indicated = MEXAM) Epithelial Cells (test None /LPF 0-30 A code = EPI) WBC, Urine (test code = None seen /HPF 0-5 A UWBC) RBC, Urine (test code = None Seen /HPF 0-5 A URBC) Bacteria (test code = Few /HPF BACT) Crystals (test code = Few Calcium Oxalate CRAIG) /HPF CBC with [id number] 22:05:00 Test Item Value Reference Range Interpretation Comments WBC (test code = WBC) 6.0 K/cumm 4.4-10.5 N RBC (test code = RBC) 5.59 M/cumm 4.10-5.70 N Hemoglobin (test code = HGB) 17.6 gm/dL 13.4-17.4 H Hematocrit (test code = HCT) 54.3 % 38.7-52.0 H MCV (test code = MCV) 97.2 fL 80-100 N MCH (test code = MCH) 31.5 pg 27.0-32.5 N MCHC (test code = MCHC) 32.4 g/dL 32.0-37.5 N RDW (test code = RDW) 14.3 % 11.5-14.5 N Platelet Count (test code = 185 K/cumm 140-440 N PLTCT) MPV (test code = MPV) 8.7 fL Diff Method (test code = DIFFM) Auto Neutrophil (test code = NEUT) 77.5 % 36-70 H Lymphocyte (test code = LYMPH) 12.5 % 12-44 N Monocyte (test code = MONO) 8.9 % 0-11 N Eosinophil (test code = EOS) 0.6 % 0-7 N Basophil (test code = BASO) 0.6 % 0-2 N Neutro Abs (test code = ANEUT) 4.7 K/cumm 1.6-7.4 N Lymph Abs (test code = ALYMPH) 0.8 K/cumm 0.5-4.6 N Stanton Abs (test code = AMONO) 0.5 K/cumm 0.0-1.2 N Eos Abs (test code = AEOS) 0.04 K/cumm 0.00-0.74 N Baso Abs (test code = ABASO) 0.0 K/cumm 0.00-0.21 N Prostatic Specific Ag. (PSA)2017-02-19 21:30:00 Test Item Value Reference Range Interpretation Comments PSA (test code = 2.83 ng/mL 0.000-3.890 N (NOTE)Prost ate Specific PSA) Antigen Test Information:The Total PSA method is appro james for use as an aid in th e detection ofprostate canc er when used in conjunc tion with a digital rectal exam inmen age 50 and olde r. The total PSA metho d is also indicated for t heserial measurement of PSA to aid in the prognosi s and management ofpr ostate cancer patients .Elevated PSA concentrati ons can only suggest th e presence of prostatecanc er until biopsy is perfo rmed. PSA concentration c an also be elevatedin stephanie gn prostatic hyper plasia or inflammatory co nditions of theprostate. PS A is generally not e levated in healthy men or men withnon-prostat ic carcinoma. [id number] 21:28:00 Test Item Value Reference Range Interpretation Comments GGT (test code = GGT) 74 U/L 8-61 H Lactate [id number] 21:28:00 Test Item Value Reference Range Interpretation Comments LDH (test code = LDH) 180 U/L 135-225 N Uric [id number] 21:28:00 Test Item Value Reference Range Interpretation Comments Uric Acid (test code = UA) 2.1 mg/dL 3.4-7.0 L [id number] 21:28:00 Test Item Value Reference Range Interpretation Comments Phosphorus (test code = PO4) 1.9 mg/dL 2.70-4.50 L Comprehensive Metabolic [id number] 21:28:00 Test Item Value Reference Range Interpretation Comments Sodium (test code = 139 mmol/L 135-145 N NA) Potassium (test 3.9 mmol/L 3.5-5.1 N code = K) Chloride (test code 100 mmol/L 98-105 N = CL) Carbon Dioxide 20 mmol/L 22-29 L (test code = CO2) Glucose (test code 86 mg/dL 70-115 N = GLU) Blood Urea Nitrogen 16 mg/dL 6-20 N (test code = BUN) Creatinine (test 1.3 mg/dL 0.7-1.2 H code = CREAT) Calcium (test code 9.1 mg/dL 8.3-10.5 N = CA) Prot Total (test 6.8 g/dL 6.4-8.3 N code = TP) Albumin (test code 4.5 g/dL 3.5-5.2 N = ALB) A/G Ratio (test 2.0 Ratio code = AGRATIO) Globulin (test code 2.3 2.9-3.1 L = GLOB) Bili Total (test 0.8 mg/dL 0.1-0.9 N code = TBIL) Alk Phos (test code 90 U/L 40-129 N = APHOS) AST (test code = 28 U/L 1-40 N AST) ALT (test code = 19 U/L 1-41 N ALT) BUN/Creatinine 12.3 Ratio (test code = BCRATIO) Anion Gap (test 19 mmol/L 7-16 H code = AGAP) Estimated GFR (test >60 eGFR (es timated code = GFR) mL/min/1.73m2 Glomerular Matthew tration Rate) is an est imated value,calculate d from the patient's s joon creatinine usin g the MDRD equation.I t is NOT the patient 's actual GFR. The eGFR provides a more clinicallyusefu l measure of kidn ey disease than se rum creatinine alone.This calculation rob es sex and race into account, if the informationis provided. If th e race is not provided , and the patient isAfrican-Ameri can, multiply by 1.2 12. If sex is not prov ided, and thepatient is female, multipl y by 0.742. Results for patients <18 ye ars ofage have not been validated by th e MDRD study and shoul d be interpretedwith caution.eGFR Re sult Interpretation: eGFR > or = 60 is in t he Normal RangeeGF R < 60 may mean kidney diseaseeGFR < 1 5 may mean kidney failureRange s recommended by the National Kidney Foundation,http ://nkd ep.nih.gov Lipid [id number] 21:28:00 Test Item Value Reference Range Interpretation Comments Cholesterol (test 215 mg/dL 0-200 H code = CHOL) Triglycerides (test 349 mg/dL 9-200 H code = TRIG) HDL (test code = 37 mg/dL 40-60 L HDL) Chol/HDL (test code 5.8 Ratio 0.0-5.0 H = CHOLPHDL) LDL, Calculated 108 0-130 N (NOTE)RISK O F HEART (test code = LDLC) DISEASEPu blished by [place] Heart AssociationAnal yte Optim al Boderline Increased RiskC HOL <200 200-239 >240TRI G <150 150-199 >200HDL Male: >60 <40HDL Female: >60 <50 LDL < 100 130-15 9 >160 LDL NEAR OPTIMAL IS 100- 129 VLDL (test code = 70 mg/dL 5-40 H VLDL) LDL/HDL (test code = 3 LDLPHDL)"
[2021-10-03 11:36] LABS: Absolute Lymphocytes (CBC) 1.8 K/uL (0.7-4.9); Hematocrit 46.2 % (39.6-49.0); Lymphocytes % 19.9 % (15.3-44.8); RBC Red Blood Cell Count 5.56 M/uL (4.33-5.43)
[2021-10-03 12:00] LABS: Albumin 2.5 g/dL (3.4-5.0); Bilirubin Direct 0.4 mg/dL (0-0.2); Bilirubin Total 0.8 mg/dL (0.2-1.0); Magnesium 2.2 mg/dL (1.8-2.4); Potassium 4.5 mmol/L (3.5-5.1); Troponin High Sensitivity 9.6 pg/mL (<58.9)
--- NOTE | 2021-10-03 12:05 | RAD REPORT ---
EXAM DESCRIPTION: CT - Head Brain Wo Cont - 10/03/2021 11:40 am CLINICAL HISTORY: VISUAL DISTURBANCES COMPARISON: HEAD BRAIN W O CONTRAST dated 01/23/2013 TECHNIQUE: All CT scans are performed using dose optimization technique as appropriate and may inclu de automated exposure control or mA/KV adjustment according to patient size. FINDINGS: No intracranial hemorrhage, hydrocephalus or extra-axial fluid collection.No areas of brai n edema or evidence of midline shift. Circumferential thickening in the left maxillary sinus. The calvarium is intact. IMPRESSION: No acute intracranial abnormality. Circumferential thickening in the left maxillary sin us.
[2021-10-03 12:10] LABS: Protime INR 1.03
[2021-10-03] MEDS ORDERED: NA CHLORIDE 0.9% 1,000 ML ONE (12:39)
[2021-10-03] MEDS ORDERED: FOLIC ACID 5 MG/ML VIAL ONE (12:39)
[2021-10-03] MEDS ORDERED: ASPIRIN 81 MG CHEWABLE TABLET ONE (12:40)
[2021-10-03 14:01] LABS: Blood Morphology Comment NOT SEEN (NOT SEEN); Platelet Estimate ADEQ; White Blood Cell Scan OK (OK)
[2021-10-03] MEDS ORDERED: LORazepam 2 MG/ML VIAL ONE (14:33)
--- NOTE | 2021-10-03 16:07 | RAD REPORT ---
EXAM DESCRIPTION: MRI - MRA Head Wo Cont - 10/03/2021 3:58 pm CLINICAL HISTORY: VISUAL DISTURBANCES CVA COMPARISON: No comparisons FINDINGS: 3D noncontrast [id number] MR angiography of the [place] was performed. No aneurysm, flow-limiting stenosis or vascular malformation is seen. Forward flow seen in codominant vertebral arteries. The visualized dural venous sinuses appear patent. IMPRESSION: No significant flow abnormality of the [place] is identified.
--- NOTE | 2021-10-03 16:08 | RAD REPORT ---
EXAM DESCRIPTION: MRI - MRA Neck W/Wo Cont - 10/03/2021 3:58 pm CLINICAL HISTORY: VISUAL DISTURBANCES COMPARISON: No comparisons FINDINGS: Contrast enhance 2D [id number] MR angiography of the neck vessels was performed. Widely patent bilateral carotid systems and vertebral arteries. No evidence of dissection. No stenosi s. No gross soft tissue abnormality. IMPRESSION: No flow limiting stenosis within the neck.
--- NOTE | 2021-10-03 16:12 | RAD REPORT ---
EXAM DESCRIPTION: MRI - Brain W/Wo Cont - 10/03/2021 3:58 pm CLINICAL HISTORY: VISUAL DISTURBANCES COMPARISON: MRA Head Wo Cont dated 10/03/2021; MRA Neck W/Wo Cont dated 10/03/2021; HEAD BRAIN W O CON TRAST dated 01/23/2013 TECHNIQUE: Sagittal T1-weighted images were obtained along with PD/heavily T2-weighted and T2-FLAIR images. Axial DWI and ADC mapping sequences were also obtained along with coronal heavily T2-weighted images were obtained. Contrast was administered. FINDINGS: No intracranial hemorrhage, mass or acute infarction. There is no edema or shift of midlin e structures. No extra-axial fluid collections. Signal voids are seen as a normal finding in the abebe r intracranial vessels. No significant white matter disease. Circumferential thickening in left maxillary sinus. IMPRESSION: No acute intracranial abnormality. Specifically, no evidence acute infarct or abnormal e nhancement.
--- NOTE | 2021-10-03 18:09 | ER ---
Nurse's Notes [facility] Name: Kehinde Parker Age: 56 yrs Sex: Male : 1965 Arrival Date: 10/03/2021 Time: : Bed 12 Private MD: Diagnosis: Unspecified visual loss-right eye;Other visual disturbances-blurry vision left eye Presentation: 10/03 10:51 Chief complaint: Patient states: My vision is black in my r eye, seen ey doctor last ab2 week and advised that there is a vein that leads to the brain that is clogged, patient scheduled for follow-up Friday but advised to come in today due to potential for vein to rupture and total vision loss results. Patient also reports some kind of issue in the r ankle and believes he has a vascular issue that is causing all his problems. Patient also has visual impairment in left eye-blurry. Coronavirus screen: Vaccine status: Patient reports being unvaccinated. Ebola Screen: Patient negative for fever greater than or equal to 101.5 degrees Fahrenheit, and additional compatible Ebola Virus Disease symptoms Patient denies exposure to infectious person. Patient denies travel to an Ebola-affected area in the 21 days before illness onset. Initial Sepsis Screen: Does the patient meet any 2 criteria? No. Patient's initial sepsis screen is negative. Does the patient have a suspected source of infection? No. Patient's initial sepsis screen is negative. Risk Assessment: Do you want to hurt yourself or someone else? Patient reports no desire to harm self or others. 10:51 Method Of Arrival: Ambulatory ab2 10:51 Acuity: MARIE 3 ab2 11:14 Onset of symptoms is unknown. ab2 Historical: - Allergies: 10:53 No Known Allergies; ab2 - PMHx: 10:53 None; ab2 - Immunization history:: Client reports having NOT received the Covid vaccine. Pneumococcal vaccine is not up to date, Flu vaccine is not up to date. - Social history:: Smoking status: Patient denies any tobacco usage or history of. Screenin:54 Abuse screen: Denies threats or abuse. Denies injuries from another. Nutritional ab2 screening: No deficits noted. Tuberculosis screening: No symptoms or risk factors identified. Fall Risk None identified. Assessment: 11:13 General: Appears in no apparent distress. comfortable, Behavior is calm, cooperative, ab2 appropriate for age. Pain: Denies pain. Neuro: Level of Consciousness is awake, alert, obeys commands, Oriented to person, place, time, situation, Appropriate for age Life Skills Instructor are equal bilaterally Moves all extremities. Gait is steady, Speech is normal, Facial symmetry appears normal, Reports blurred vision. Cardiovascular: No deficits noted. Denies chest pain, shortness of breath, Heart tones S1 S2 present Patient's skin is warm and dry. Chest pain is denied. Respiratory: No deficits noted. Airway is patent Respiratory effort is even, unlabored, Respiratory pattern is regular, symmetrical, Breath sounds are clear bilaterally. GI: No deficits noted. No signs and/or symptoms were reported involving the gastrointestinal system. : No deficits noted. No signs and/or symptoms were reported regarding the genitourinary system. EENT: No deficits noted. No signs and/or symptoms were reported regarding the EENT system. Parent/caregiver reports the patient having blurred vision. Derm: No deficits noted. No signs and/or symptoms reported regarding the dermatologic system. Musculoskeletal: No deficits noted. No signs and/or symptoms reported regarding the musculoskeletal system. Swelling present in right leg. 13:53 Reassessment: Patient appears in no apparent distress at this time. Pt awaiting to go ab2 to MRI. Denies any needs at this time. Pt resting comfortably. 17:17 Reassessment: Patient appears in no apparent distress at this time. Awaiting blood work ab2 results for disposition. Pt requested food. Pt given snacks, denies any further needs. Vital Signs: 10:51 BP 141 / 93; Pulse 82; Resp 19 S; Temp 98.4; Pulse Ox 98% on R/A; Weight 77.11 kg (R); ab2 Height 5 ft. 7 in. (170.18 cm) (R); 13:47 BP 129 / 77; Pulse 79; Resp 16; Pulse Ox 98% on R/A; ab2 14:30 ab2 15:30 ab2 16:00 BP 134 / 72; Pulse 79; Resp 16; Pulse Ox 100% on R/A; ab2 17:18 BP 121 / 79; Pulse 81; Resp 16; Pulse Ox 98% on R/A; ab2 10:51 Body Mass Index 26.63 (77.11 kg, 170.18 cm) ab2 14:30 Pt in MRI unable to take v/s ab2 15:30 Pt remains in MRI unable to get v/s ab2 ED Course: 10:28 Patient arrived in ED. mr 10:53 Triage completed. ab2 11:05 Monico Chang PA is PHCP. cp 11:05 James Rivera MD is Attending Physician. cp 11:13 Myron Marroquin is Primary Nurse. ab2 11:14 Arm band placed on right wrist. ab2 11:14 Patient has correct armband on for positive identification. Bed in low position. Call ab2 light in reach. Side rails up X2. 11:14 No provider procedures requiring assistance completed. ab2 11:27 Inserted saline lock: 18 gauge in right antecubital area, using aseptic technique. ab2 Blood collected. 11:27 Basic Metabolic Panel Sent. ab2 11:27 CBC with Diff Sent. ab2 11:27 LFT's Sent. ab2 11:27 Magnesium Sent. ab2 11:27 PT-INR Sent. ab2 11:27 Troponin HS Sent. ab2 11:39 CT Head Brain wo Cont: vision loss right eye In Process Unspecified. EDMS 11:50 CBC Smear Scan Sent. ab2 15:58 MRA Head Wo Cont In Process Unspecified. EDMS 15:58 Brain W/Wo Cont In Process Unspecified. EDMS 15:58 MRA Neck W/Wo Cont In Process Unspecified. EDMS 18:04 Sameer Gaming MD is Referral Physician. cp 18:17 IV discontinued, intact, bleeding controlled, No redness/swelling at site. Pressure ab2 dressing applied. Administered Medications: 13:04 Drug: NS 0.9% 1000 ml Route: IV; Rate: 1 bolus; Site: right antecubital; ab2 18:18 Follow up: Response: No adverse reaction; IV Status: Completed infusion ab2 13:04 Drug: Aspirin 81 mg Route: PO; ab2 18:17 Follow up: Response: No adverse reaction ab2 13:04 Drug: foLIC Acid 1 mg Route: IVPB; Site: right antecubital; ab2 18:17 Follow up: Response: No adverse reaction ab2 18:17 Follow up: Response: No adverse reaction; IV Status: Completed infusion ab2 14:44 Drug: Ativan (LORazepam) 1 mg Route: IVP; Site: right antecubital; ab2 18:17 Follow up: Response: No adverse reaction ab2 Outcome: 18:08 Discharge ordered by . magdy 18:17 Discharged to home ambulatory. ab2 18:17 Condition: good 18:17 Discharge instructions given to patient, Instructed on discharge instructions, follow up and referral plans. Demonstrated understanding of instructions, follow-up care. 18:18 Patient left the ED. ab2 Signatures: Dispatcher [employer] Sherlyn Hairston Corey, PA PA cp Bleininger, Alexis ab2
--- NOTE | 2021-10-03 18:09 | EDPHYS ---
Physician Documentation [facility] Name: Kehinde Parker Age: 56 yrs Sex: Male : 1965 Arrival Date: 10/03/2021 Time: : Bed 12 Private MD: ED Physician James Rivera HPI: 10/03 11:20 This 56 yrs old Male presents to ER via Ambulatory with complaints of Vision cp Problem. 11:20 The patient is experiencing decreased vision. cp 11:20 Onset: The symptoms/episode began/occurred last week. Duration: the symptoms are cp continuous. Patient does not utilize any form of vision correction. 11:20 Associated signs and symptoms: Pertinent positives: chronic right ankle pain. cp 11:20 Patient presents to the emergency department with complaints of right eye decreased cp vision. Patient reports he is seeing "blackness" out of right eye. Patient reports since last week he has been seeing blackness out of right eye. He went and saw eye doctor at local [facility] who recommended he go to ED for evaluation, but patient reports he left Friday to go visit brother who lives out of town. Patient reports he was told there was concern for a blocked vein in his right eye. Patient also c/o left eye blurry vision. Historical: - Allergies: 10:53 No Known Allergies; ab2 - PMHx: 10:53 None; ab2 - Immunization history:: Client reports having NOT received the Covid vaccine. Pneumococcal vaccine is not up to date, Flu vaccine is not up to date. - Social history:: Smoking status: Patient denies any tobacco usage or history of. ROS: 11:25 Constitutional: Negative for body aches, chills, fever. cp 11:25 Eyes: Positive for vision loss, of the right eye, Negative for injury or acute cp deformity, pain. 11:25 ENT: Negative for ear pain, sore throat, difficulty swallowing, difficulty handling secretions. 11:25 Cardiovascular: Negative for chest pain. 11:25 Respiratory: Negative for cough, shortness of breath, wheezing. 11:25 Abdomen/GI: Negative for nausea, vomiting, and diarrhea. 11:25 MS/extremity: Positive for chronic right ankle pain, Negative for injury or acute deformity. 11:25 Neuro: Negative for altered mental status, headache, syncope, weakness. 11:25 All other systems are negative. Exam: 11:30 Constitutional: The patient appears in no acute distress, alert, awake, comfortable, cp non-diaphoretic, non-toxic, well developed, well nourished. 11:30 Head/Face: Normocephalic, atraumatic. cp 11:30 Eyes: Periorbital structures: appear normal, Pupils: equal, round, and reactive to light and accomodation, Extraocular movements: intact throughout, Conjunctiva: normal, no exudate, no injection, Sclera: no appreciated abnormality, Lids and lashes: appear normal, bilaterally, Visual [place]: central vision loss right eye, patient able to see motion lateral field of vision right eye. left eye reported blurry vision. 11:30 ENT: External ear(s): are unremarkable, Nose: is normal, Mouth: Lips: moist, Oral mucosa: pink and intact, moist, Posterior pharynx: Airway: no evidence of obstruction, patent. 11:30 Neck: ROM/movement: is normal, is supple, without pain, no range of motions limitations. 11:30 Chest/axilla: Inspection: normal. 11:30 Cardiovascular: Rate: normal, Rhythm: regular, Edema: is not appreciated, JVD: is not appreciated. 11:30 Respiratory: the patient does not display signs of respiratory distress, Respirations: normal, no use of accessory muscles, no retractions, labored breathing, is not present, Breath sounds: are clear throughout, no decreased breath sounds. 11:30 Abdomen/GI: Exam negative for discomfort, distension, guarding, Inspection: abdomen appears normal. 11:30 Skin: no rash present. 11:30 Neuro: Orientation: to person, place \\T\\ time. Mentation: is normal, Motor: moves all fours, strength is normal, Sensation: no obvious gross deficits, Gait: is steady, at a normal pace, without difficulty. 11:50 ECG was reviewed by the Attending Physician. cp Vital Signs: 10:51 BP 141 / 93; Pulse 82; Resp 19 S; Temp 98.4; Pulse Ox 98% on R/A; Weight 77.11 kg (R); ab2 Height 5 ft. 7 in. (170.18 cm) (R); 13:47 BP 129 / 77; Pulse 79; Resp 16; Pulse Ox 98% on R/A; ab2 14:30 ab2 15:30 ab2 16:00 BP 134 / 72; Pulse 79; Resp 16; Pulse Ox 100% on R/A; ab2 17:18 BP 121 / 79; Pulse 81; Resp 16; Pulse Ox 98% on R/A; ab2 10:51 Body Mass Index 26.63 (77.11 kg, 170.18 cm) ab2 14:30 Pt in MRI unable to take v/s ab2 15:30 Pt remains in MRI unable to get v/s ab2 MDM: 11:15 Patient medically screened. cp 12:00 Differential diagnosis: Acute iritis of right eye. retinal detachment, central venous cp occlusion, arterial occlusion, temporal arteritis. 17:59 Physician consultation: Sameer Gaming MD was called at 17:59, was contacted at 17:59, regarding patient's condition, elevated crp and normal esr. Will see patient in clinic tomorrow for f/u and reevaluation. 18:07 Data reviewed: vital signs, nurses notes, lab test result(s), EKG, radiologic studies, cp CT scan, MRI, I have discussed the patient's presentation/case with the attending Emergency Department Physician; and as a result, I will discharge patient. 10/03 11:16 Order name: Basic Metabolic Panel; Complete Time: 12:29 cp 10/03 12:29 Interpretation: Normal except: CL 108; CRE 1.46; GFR 50. cp 10/03 11:16 Order name: CBC with Diff; Complete Time: 15:07 cp 10/03 15:07 Interpretation: Normal except: RBC 5.56; RDW 17.6; MPV 7.0. cp 10/03 11:16 Order name: LFT's; Complete Time: 12:29 cp 10/03 16:18 Interpretation: Normal except: AST 63; ALT 89; ALK 164; BILID 0.4; ALB 2.5; GLOB 4.5; cp A/G 0.6. 10/03 11:16 Order name: Magnesium; Complete Time: 12:29 cp 10/03 11:16 Order name: PT-INR; Complete Time: 12:29 cp 10/03 11:16 Order name: Troponin HS; Complete Time: 12:29 cp 10/03 11:16 Order name: CT Head Brain wo Cont: vision loss right eye; Complete Time: 12:29 cp 10/03 11:45 Order name: CBC Smear Scan; Complete Time: 15:07 EDMS 10/03 13:15 Order name: MRA Head Wo Cont; Complete Time: 16:16 EDMS 16 13:17 Order name: Brain W/Wo Cont; Complete Time: 16:16 EDMS 10/03 16:34 Order name: ESR; Complete Time: 17:44 cp 10/03 16:34 Order name: CRP; Complete Time: 17:44 cp 10/03 17:55 Interpretation: Abnormal: C-REACTIVE PROT 19.50. cp 10/03 16:34 Order name: LAB Add On cp 10/03 11:16 Order name: EKG; Complete Time: 11:16 cp 10/03 11:16 Order name: Cardiac monitoring; Complete Time: 11:27 cp 10/03 11:16 Order name: EKG - Nurse/Tech; Complete Time: 11:50 cp 10/03 11:16 Order name: IV Saline Lock; Complete Time: 11:27 cp 10/03 11:16 Order name: Labs collected and sent; Complete Time: 11:27 cp 10/03 11:16 Order name: O2 Per Protocol; Complete Time: 11:27 cp 10/03 11:16 Order name: O2 Sat Monitoring; Complete Time: 11:27 cp 10/03 11:51 Order name: Visual Acuity; Complete Time: 12:23 cp 10/03 13:17 Order name: MRA Neck W/Wo Cont; Complete Time: 16:16 EDMS EC:50 Rate is 59 beats/min. Rhythm is regular. TX interval is normal. QRS interval is normal. cp QT interval is normal. T waves are Inverted in lead aVR. Interpreted by me. Reviewed by me. Administered Medications: 13:04 Drug: NS 0.9% 1000 ml Route: IV; Rate: 1 bolus; Site: right antecubital; ab2 18:18 Follow up: Response: No adverse reaction; IV Status: Completed infusion ab2 13:04 Drug: Aspirin 81 mg Route: PO; ab2 18:17 Follow up: Response: No adverse reaction ab2 13:04 Drug: foLIC Acid 1 mg Route: IVPB; Site: right antecubital; ab2 18:17 Follow up: Response: No adverse reaction ab2 18:17 Follow up: Response: No adverse reaction; IV Status: Completed infusion ab2 14:44 Drug: Ativan (LORazepam) 1 mg Route: IVP; Site: right antecubital; ab2 18:17 Follow up: Response: No adverse reaction ab2 Disposition Summary: 10/03/21 18:08 Discharge Ordered Location: Home cp Problem: new cp Symptoms: are unchanged cp Condition: Fair cp Diagnosis - Unspecified visual loss - right eye cp - Other visual disturbances - blurry vision left eye cp Followup: cp - With: Sameer Gaming MD - When: Tomorrow - Reason: Recheck today's complaints Discharge Instructions: - Discharge Summary Sheet cp - Blurred Vision, Adult cp - Visual Disturbances cp Forms: - Medication Reconciliation Form cp - Thank You Letter cp - Antibiotic Education cp - Prescription Opioid Use cp Signatures: Dispatcher [employer] EDMS Michi Greene FNP-C [employer]-Cla1 Monico Chang PA PA cp Bleininger, Alexis ab2 Corrections: (The following items were deleted from the chart) 13:15 12:31 MR STROKE PROTOCOL+MRI.RAD.BRZ ordered. EDMS EDMS 15:07 11:51 Normal except: RBC 5.56. cp cp 10/04 17:56 10/03 11:55 Constitutional: Negative for body aches, chills, fever, cp cp
[2021-10-03 18:44] VITALS: TEMP 98.4
[2021-10-03 18:48] VITALS: BP 121/79; O2SAT 98
== END 2021-10-03 18:18 | disposition home or self-care (01) ==
LOC: ER 10:22
DX: H54.7 Unspecified visual loss (principal); H53.8 Other visual disturbances
CPT/HCPCS: 85025; 80048; 36415; 83735; 85610; 80076; 85652; 84484; 86140; 70450; 70553; 70544; 70549; A9577; J7030; 93005

== ENCOUNTER 2021-10-08 12:50 | Emergency (ER) | payer BC ==
--- OUTSIDE RECORDS SUMMARY | 2021-10-08 12:56 | XMS REPORT | Continuity of Care Document ---
:1965 Author Organization [facility] t Address [address] [place] [address] Care Team Providers Name Role Phone ATNA VENEGAS Attending Clinician Unavailable Shantanu Dahl DO Attending Clinician Doctor Unassigned, Name Attending Clinician Unavailable Theo HOLGUIN Attending Clinician [facility] Attending Clinician Unavailable Yesika DOZIER Attending Clinician [...] y of itis of itis of 00:00: [place] both knees both knees 00 Ms dical Branch Right knee Right knee Disease Active U nivers pain pain 1-26 ity of 00:00: [address] Branch 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 it y of ciency ciency 00:00: [place] virus virus 00 Medical infection) infection) Br anch Elevated Elevated Disease Active Unive rs serum serum 1-26 ity of creatinine creatinine 00:[place]: [place] [facility] Allergies, Adverse Reactions, Alerts Allergy Allergy Status Severity Reaction(s) Onset Inactive Treating Comm ents Source Name Type Date Date Clinician NO KNOWN Drug Active Univers ALLERGIE Class ity of S [facility] Social History Social Habit Start Date Stop Date Quantity Comments Source Exposure to Not sure [facility] SARS-CoV-2 [facility] (event) Branch Tobacco use and 2020-03-13 2020-03-13 Never used Universit y of exposure 00:00:00 00:00:00 [facility] Alcohol intake 2020-03-13 2020-03-13 Current drinker Unive rsity of 00:00:00 00:00:00 of alcohol [facility] (finding) [place] Alcohol Comment 2015-09-05 2015-09-05 drinks case of Unive rsity of 00:00:00 00:00:00 beer on weekends [facility] dical [place] Tobacco Comment 2006-05-13 2006-05-13 social Universit y of 00:00:00 00:00:00 [facility] History of 2006-02-04 Smoker University of tobacco use 00:00:00 [facility] [birth year] Universit y of 00:00:00 00:00:00 [facility] Smoking Status Start Date Stop Date Source Former smoker 2020-03-13 00:00:00 2020-03-13 00:00:00 Universi ty of [facility] Medications Ordered Filled Start Stop Current Ordering Indication Dosage Frequency Signature Comments Components Source Medication Medication Date Date Medication? Clinician (SIG) Name Name esomeprazol 2019-08 Yes 40mg Take 1 Univ ers e (NEXIUM) 0-23 capsule by ity of 40 mg 00:00: mouth [place] capsule 00 daily with Medica l breakfast. Branch darunavir-c 2019-08 Yes [id number] 1 tablet Univers obicistat 0-23 po once ity of (PREZCOBIX) 00:00: daily with [place] 800-150 00 food Medical mg-mg per Branch tablet emtricitabi 2019-08 Yes [id number] 1{tbl} Take 1 Univers ne-tenofovi 0-23 tablet by ity of r alafen 00:00: mouth [place] (DESCOVY) 00 daily. Medical tablet Branch esomeprazol 2019-08 Yes 40mg Take 1 Univ ers e (NEXIUM) 0-23 capsule by ity of 40 mg 00:00: mouth [place] capsule 00 daily with Medica l breakfast. Branch darunavir-c 2019-08 Yes [id number] 1 tablet Univers obicistat 0-23 po once ity of (PREZCOBIX) 00:00: daily with [place] 800-150 00 food Medical mg-mg per Branch tablet emtricitabi 2019-08 Yes [id number] 1{tbl} Take 1 Univers ne-tenofovi 0-23 tablet by ity of r alafen 00:00: mouth [place] (DESCOVY) 00 daily. Medical tablet Branch esomeprazol 2019-08 Yes 40mg Take 1 Univ ers e (NEXIUM) 0-23 capsule by ity of 40 mg 00:00: mouth [place] capsule 00 daily with Medica l breakfast. Branch darunavir-c 2019-08 Yes [id number] 1 tablet Univers obicistat 0-23 po once ity of (PREZCOBIX) 00:00: daily with [place] 800-150 00 food Medical mg-mg per Branch tablet emtricitabi 2019-08 Yes [id number] 1{tbl} Take 1 Univers ne-tenofovi 0-23 tablet by ity of r alafen 00:00: mouth [place] (DESCOVY) 00 daily. Medical tablet Branch esomeprazol 2019-08 Yes [id number] 40mg Take 40 mg Univers e (NEXIUM 0-21 by mouth ity of PACKET) 40 00:00: daily [place] mg packet 00 breakfast. [facility] Branch esomeprazol 2019-08 2020- No [id number] 40mg Take 40 mg Univers e (NEXIUM 0-21 10-23 by mouth ity o f PACKET) 40 00:00: 00:00 daily with [place] mg packet 00 :00 breakfast. [facility] Branch esomeprazol 2019-08 2020- No [id number] 40mg Take 40 mg Univers e (NEXIUM 0-21 10-23 by mouth ity o f PACKET) 40 00:00: 00:00 daily with [place] mg packet 00 :00 breakfast. [facility] Branch esomeprazol 2019-08 2020- No [id number] 40mg Take 40 mg Univers e (NEXIUM 0-21 10-23 by mouth ity o f PACKET) 40 00:00: 00:00 daily with [place] mg packet 00 :00 breakfast. [facility] Branch hyaluronate 2020- No 3mL Unive rs sodium, 6-05 06-05 [...] No 3mL 3 mL, Univ ers sodium, 01-20 06-05 Intra-greg ity o f stabilized 20:15: 19:13 [place] (DUROLANE[place] 00 :00 ONCE, 1 Medica l intra-artic dose, Fri Bra nch ular 01/21/20 at injection 3 1515, mL Routine hyaluronate 2020-0 2020- No 3mL Unive rs sodium, 01-20-05 ity of stabilized 20:15: 19:13 [place] (DUROLANE) 00 :00 Medical intra-artic Branch ular injection 3 mL hyaluronate 2020-0 2020- No 3mL Unive rs sodium, 01-20-05 ity of stabilized 20:15: 19:13 [place] (DUROLANE) 00 :00 Medical intra-artic Branch ular injection 3 mL hyaluronate 2020-0 2020- No 3mL 3 mL, Univ ers sodium, - 06-05 Intra-greg ity o f stabilized 20:15: 19:13 [place] (DUROLANE[place] 00 :00 ONCE, 1 Medica l intra-artic dose, Fri Bra nch ular 01/21/20 at injection 3 1515, mL Routine hyaluronate 2020-0 2020- No 3mL 3 mL, Univ ers sodium, 01-20 06-05 Intra-greg ity o f stabilized 20:15: 19:13 [place] (DUROLANE[place] 00 :00 ONCE, 1 Medica l intra-artic dose, Fri Bra nch ular 20 at injection 3 1515, mL Routine hyaluronate 2020-0 2020- No 3mL Unive rs sodium, 01-20 06-05 ity of stabilized 20:15: 19:13 [place] [...] 01/21/20 at injection 3 1515, mL Routine darunavir-c 2020-0 Yes [id number] 1 tablet Univers obicistat 4-09 po once ity of (PREZCOBIX) 00:00: daily with [place] 800-150 00 food Medical mg-mg per Branch tablet emtricitabi 2020-0 Yes [id number] 1{tbl} Take 1 Univers ne-tenofovi 4-09 tablet by ity of r alafen 00:00: mouth [place] (DESCOVY) 00 daily. Medical tablet Branch darunavir-c 2020-0 Yes [id number] 1 tablet Univers obicistat 4-09 po once ity of (PREZCOBIX) 00:00: daily with [place] 800-150 00 food Medical mg-mg per Branch tablet emtricitabi 2020-0 Yes [id number] 1{tbl} Take 1 Univers ne-tenofovi 4-09 tablet by ity of r alafen 00:00: mouth [place] (DESCOVY) 00 daily. Medical tablet Branch darunavir-c 2020-0 Yes [id number] 1 tablet Univers obicistat 4-09 po once ity of (PREZCOBIX) 00:00: daily with [place] 800-150 00 food Medical mg-mg per Branch tablet emtricitabi 2020-0 Yes [id number] 1{tbl} Take 1 Univers ne-tenofovi 4-09 tablet by ity of r alafen 00:00: mouth [place] (DESCOVY) 00 daily. Medical tablet Branch darunavir-c 2020-0 Yes [id number] 1 tablet Univers obicistat 4-09 po once ity of (PREZCOBIX) 00:00: daily with [place] 800-150 00 food Medical mg-mg per Branch tablet emtricitabi 2020-0 Yes [id number] 1{tbl} Take 1 Univers ne-tenofovi 4-09 tablet by ity of r alafen 00:00: mouth [place] (DESCOVY) 00 daily. Medical tablet Branch darunavir-c 2020-0 Yes [id number] 1 tablet Univers obicistat 4-09 po once ity of (PREZCOBIX) 00:00: daily with [place] 800-150 00 food Medical mg-mg per Branch tablet emtricitabi 2020-0 Yes [id number] 1{tbl} Take 1 Univers ne-tenofovi 4-09 tablet by ity of r alafen 00:00: mouth [place] (DESCOVY) 00 daily. Medical tablet Branch darunavir-c 2020-0 Yes [id number] 1 tablet Univers obicistat 4-09 po once ity of (PREZCOBIX) 00:00: daily with [place] 800-150 00 food Medical mg-mg per Branch tablet emtricitabi 2020-0 Yes [id number] 1{tbl} Take 1 Univers ne-tenofovi 4-09 tablet by ity of r alafen 00:00: mouth [place] (DESCOVY) 00 daily. Medical tablet Branch darunavir-c 2020-0 Yes [id number] 1 tablet Univers obicistat 4-09 po once ity of (PREZCOBIX) 00:00: daily with [place] 800-150 00 food Medical mg-mg per Branch tablet emtricitabi 2020-0 Yes [id number] 1{tbl} Take 1 Univers ne-tenofovi 4-09 tablet by ity of r alafen 00:00: mouth [place] (DESCOVY) 00 daily. Medical tablet Branch darunavir-c 2020-0 Yes [id number] 1 tablet Univers obicistat 4-09 po once ity of (PREZCOBIX) 00:00: daily with [place] 800-150 00 food Medical mg-mg per Branch tablet emtricitabi 2020-0 Yes [id number] 1{tbl} Take 1 Univers ne-tenofovi 4-09 tablet by ity of r alafen 00:00: mouth [place] (DESCOVY) 00 daily. Medical tablet Branch darunavir-c 2020-0 Yes [id number] 1 tablet Univers obicistat 4-09 po once ity of (PREZCOBIX) 00:00: daily with [place] 800-150 00 food Medical mg-mg per Branch tablet emtricitabi 2020-0 Yes [id number] 1{tbl} Take 1 Univers ne-tenofovi 4-09 tablet by ity of r alafen 00:00: mouth [place] (DESCOVY) 00 daily. Medical tablet Branch darunavir-c 2020-0 Yes [id number] 1 tablet Univers obicistat 4-09 po once ity of (PREZCOBIX) 00:00: daily with [place] 800-150 00 food Medical mg-mg per Branch tablet emtricitabi 2020-0 Yes [id number] 1{tbl} Take 1 Univers ne-tenofovi - tablet by ity of r alafen 00:00: mouth [place] (DESCOVY) 00 daily. Medical tablet Branch darunavir-c 2020-0 2020- No [id number] 1 tablet Univers obicistat 11-24- po once ity of (PREZCOBIX) 00:00: 00:00 daily with [place] 800-150 00 :00 food Medical mg-mg per Branch tablet emtricitabi 2020-0 2020- No [id number] 1{tbl} Take 1 Univers ne-tenofovi 11-24 tablet by it y of r alafen 00:00: 00:00 mouth [place] (DESCOVY) 00 :00 daily. Medical tablet Branch darunavir-c 2020-0 2020- No [id number] 1 tablet Univers obicistat 11-24 po once ity of (PREZCOBIX) 00:00: 00:00 daily with [place] 800-150 00 :00 food Medical mg-mg per Branch tablet emtricitabi 2020-0 2020- No [id number] 1{tbl} Take 1 Univers ne-tenofovi 11-24 tablet by it y of r alafen 00:00: 00:00 mouth [place] (DESCOVY) 00 :00 daily. Medical tablet Branch darunavir-c 2020-0 2020- No [id number] 1 tablet Univers obicistat 11-24 po once ity of (PREZCOBIX) 00:00: 00:00 daily with [place] 800-150 00 :00 food Medical mg-mg per Branch tablet emtricitabi 2020-0 2020- No [id number] 1{tbl} Take 1 Univers ne-tenofovi 11-24 tablet by it y of r alafen 00:00: 00:00 mouth [place] (DESCOVY) 00 :00 daily. Medical tablet Branch darunavir-c 2020-0 Yes [id number] 800mg Take 800 Univers obi-emtri-t 4-08 mg by ity of enof ala 00:00: mouth [place] (SYMTUZA) 00 daily. Medical 800-150-200 Take one Bran ch -10 mg Tab 800/150/20 0/10 mg tablet once daily with food darunavir-c 2020-0 2020- No [id number] 800mg Take 800 Univers obi-emtri-t 4-08 04-09 mg by ity of enof ala 00:00: 00:00 mouth [place] (SYMTUZA) 00 :00 daily. Medical 800-150-200 Take one Bran ch -10 mg Tab 800/150/20 0/10 mg tablet once daily with food sulfamethox 2020-0 Yes [id number] 1 po once Univers azole-trime 3-31 daily ity of thoprim 00:00: Friday [place] (BACTRIM 00 through Medical DS) 800-160 Friday Branch mg per tablet sulfamethox 2020-0 Yes [id number] 1 po once Univers azole-trime 3-31 daily ity of thoprim 00:00: Friday [place] (BACTRIM 00 through Medical DS) 800-160 Friday Branch mg per tablet sulfamethox 2020-0 Yes [id number] 1 po once Univers azole-trime 3-31 daily ity of thoprim 00:00: Friday [place] (BACTRIM 00 through Medical DS) 800-160 Friday Branch mg per tablet sulfamethox 2020-0 2020- No [id number] 1 po once Univers azole-trime 3-31 05-22 daily ity of thoprim 00:00: 00:00 Friday [place] (BACTRIM 00 :00 through Medical DS) 800-160 Friday Branch mg per tablet methylPREDN 2020-0 2020- No 80mg Unive rs ISolone 10-31 ity of acetate 20:00: 18:48 [place] (DEPO-MEDRO 00 :00 Medical L) Branch injection 80 mg methylPREDN 2020-0 2020- No 80mg Unive rs ISolone 10-31 ity of acetate 20:00: 18:47 [place] (DEPO-MEDRO 00 :00 Medical L) Branch injection 80 mg methylPREDN 2020-0 2020- No 80mg 80 mg, Uni vers ISolone 10-31 Intramuscu ity o f acetate 20:00: 18:47 lar, ONCE, [place] (DEPO-MEDRO 00 :00 1 dose, Medic al L) Mon Branch injection 11/01/19 at 80 mg 1500, Routine methylPREDN 2020- No 80mg 80 mg, Uni vers ISolone 10-31 Intra-greg ity o f acetate 20:00: 18:48 lenineleanor [place] (DEPO-MEDRO 00 :00 ONCE, 1 Medic al L) dose, Mon Branch injection 11/01/19 at 80 mg 1500, Routine elviteg-cob 2018-08 Yes [id number] 1 po once Univers -emtri-teno 2-27 daiy ity of f ALAFEN 00:00: [place] (GENVOYA) 00 Medical 150-150-200 Branch -10 mg per tablet elviteg-cob 2018- Yes [id number] 1 po once Univers -emtri-teno 2-27 daiy ity of f ALAFEN 00:00: [place] (GENVOYA) 00 Medical 150-150-200 Branch -10 mg per tablet elviteg-cob 2018- Yes [id number] 1 po once Univers -emtri-teno 2-27 daiy ity of f ALAFEN 00:00: [place] (GENVOYA) 00 Medical 150-150-200 Branch -10 mg per tablet elviteg-cob 2018- Yes [id number] 1 po once Univers -emtri-teno 2-27 daiy ity of f ALAFEN 00:00: [place] (GENVOYA) 00 Medical 150-150-200 Branch -10 mg per tablet elviteg-cob 2018- Yes [id number] 1 po once Univers -emtri-teno 2-27 daiy ity of f ALAFEN 00:00: [place] (GENVOYA) 00 Medical 150-150-200 Branch -10 mg per tablet elviteg-cob 2018- Yes [id number] 1 po once Univers -emtri-teno 2-27 daiy ity of f ALAFEN 00:00: [place] (GENVOYA) 00 Medical 150-150-200 Branch -10 mg per tablet elviteg-cob 2018- Yes [id number] 1 po once Univers -emtri-teno 2-27 daiy ity of f ALAFEN 00:00: [place] (GENVOYA) 00 Medical 150-150-200 Branch -10 mg per tablet elviteg-cob 2018-08 Yes [id number] 1 po once Univers -emtri-teno 2-27 daiy ity of f ALAFEN 00:00: [place] [facility] Medical 150-150-200 Branch -10 mg per tablet elviteg-cob 2018-08 Yes [id number] 1 po once Univers -emtri-teno 2-27 daiy ity of f ALAFEN 00:00: [place] [facility] Medical 150-150-200 Branch -10 mg per tablet elviteg-cob 2018-08 2020- No [id number] 1 po once Univers -emtri-teno 2-27 04-08 daiy ity of f ALAFEN 00:00: 00:00 [place] [facility] :00 Medical 150-150-200 Branch -10 mg per tablet elviteg-cob 2018-08 2020- No [id number] 1 po once Univers -emtri-teno 2-27 04-08 daiy ity of f ALAFEN 00:00: 00:00 [place] [facility] :00 Medical 150-150-200 Branch -10 mg per tablet elviteg-cob 2018-08 2020- No [id number] 1 po once Univers -emtri-teno 2-27 04-08 daiy ity of f ALAFEN 00:00: 00:00 [place] ([facility]) 00 :00 Medical 150-150-200 Branch -10 mg per tablet esomeprazol 2019-0 Yes [id number] 40mg Take 40 mg Univers e (NEXIUM 4-10 by mouth ity of PACKET) 40 00:00: daily with [place] mg packet 00 breakfast. [facility] esomeprazol 2018-0 Yes [id number] 40mg Take 40 mg Univers e (NEXIUM 4-10 by mouth ity of PACKET) 40 00:00: daily with [place] mg packet 00 breakfast. [facility] esomeprazol 2018-0 Yes [id number] 40mg Take 40 mg Univers e (NEXIUM 4-10 by mouth ity of PACKET) 40 00:00: daily with [place] mg packet 00 breakfast. [facility] esomeprazol 2018-0 Yes [id number] 40mg Take 40 mg Univers e (NEXIUM 4-10 by mouth ity of PACKET) 40 00:00: daily with [place] mg packet 00 breakfast. [facility] esomeprazol Yes [id number] 40mg Take 40 mg Univers e (NEXIUM 4-10 by mouth ity of PACKET) 40 00:00: daily with [place] mg packet 00 [facility]. [id number] 40mg Take 40 mg Univers e (NEXIUM 4-10 by mouth ity of PACKET) 40 00:00: daily with [place] mg packet 00 breakfast. [facility] esomeprazol Yes [id number] 40mg Take 40 mg Univers e (NEXIUM 4-10 by mouth ity of PACKET) 40 00:00: daily with [place] mg packet 00 breakfast. [facility] [id number] 40mg Take 40 mg Univers e (NEXIUM 4-10 by mouth ity of PACKET) 40 00:00: daily with [place] mg packet 00 breakfast. [facility] [id number] 40mg Take 40 mg Univers e (NEXIUM 4-10 by mouth ity of PACKET) 40 00:00: daily with [place] mg packet 00 breakfast. [facility] [id number] 40mg Take 40 mg Univers e (NEXIUM 4-10 by mouth ity of PACKET) 40 00:00: daily with [place] mg packet 00 breakfast. [facility] Yes [id number] 40mg Take 40 mg Univers e (NEXIUM 4-10 by mouth ity of PACKET) 40 00:00: daily with [place] mg packet 00 breakfast. [facility] esomeprazol Yes [id number] 40mg Take 40 mg Univers e (NEXIUM 4-10 by mouth ity of PACKET) 40 00:00: daily with [place] mg packet 00 breakfast. [facility] esomeprazol 0 Yes [id number] 40mg Take 40 mg Univers e (NEXIUM 4-10 by mouth ity of PACKET) 40 00:00: daily with [place] mg packet 00 breakfast. [facility] esomeprazol Yes [id number] 40mg Take 40 mg Univers e (NEXIUM 4-10 by mouth ity of PACKET) 40 00:00: daily with [place] mg packet 00 breakfast. [facility] esomeprazol Yes [id number] 40mg Take 40 mg Univers e (NEXIUM 4-10 by mouth ity of PACKET) 40 00:00: daily with [place] mg packet 00 breakfast. [facility] [id number] 40mg Take 40 mg Univers e (NEXIUM 4-10 by mouth ity of PACKET) 40 00:00: daily with [place] mg packet 00 breakfast. [facility] esomeprazol Yes [id number] 40mg Take 40 mg Univers e (NEXIUM 4-10 by mouth ity of PACKET) 40 00:00: daily with [place] mg packet 00 breakfast. [facility] [id number] 40mg Take 40 mg Univers e (NEXIUM 4-10 by mouth ity of PACKET) 40 00:00: daily with [place] mg packet 00 breakfast. [facility] [id number] 40mg Take 40 mg Univers e (NEXIUM 4-10 by mouth ity of PACKET) 40 00:00: daily with [place] mg packet 00 breakfast. [facility] [id number] 40mg Take 40 mg Univers e (NEXIUM 4-10 by mouth ity of PACKET) 40 00:00: daily with [place] mg packet 00 breakfast. [facility] [id number] 40mg Take 40 mg Univers e (NEXIUM 4-10 by mouth ity of PACKET) 40 00:00: daily with [place] mg packet 00 breakfast. [facility] esomeprazol 2020- No [id number] 40mg Take 40 mg Univers e (NEXIUM 4-10 10-21 by mouth ity o f PACKET) 40 00:00: 00:00 daily with [place] mg packet 00 :00 breakfast. [facility] esomeprazol 2020- No [id number] 40mg Take 40 mg Univers e (NEXIUM 4-10 10-21 by mouth ity o f PACKET) 40 00:00: 00:00 daily with [place] mg packet 00 :00 breakfast. [facility] ranitidine 2018-0 Yes 1 po at Univ [...] 04-08 bedtime ity of tablet 00:00: 00:00 [place] 00 :00 Medical Branch ranitidine 2018-0 2020- No 1 po at Uni vers 300 mg 7-20 04-08 bedtime ity of tablet 00:00: 00:00 [place] 00 :00 Medical Branch ranitidine 2018-0 2020- No 1 po at Uni vers 300 mg 7-20 04-08 bedtime ity of tablet 00:00: 00:00 [place] 00 :00 Medical Branch No known No Univers medications ity of [facility] Immunizations Ordered Filled Immunization Date Status Comments Sour e Immunization Name Name Influenza Virus 2020-06-07 Completed Universit y of Vaccine Recomb Quad 00:00:00 [place] Medical IM, Preserv and ABX Branc h Free 18-64 YRS Influenza Virus 2020-06-07 Completed Universit y of Vaccine Recomb Quad 00:00:00 [place] Medical IM, Preserv and ABX Branc h [...] Universit y of Conjugate, PCV13 00:00:00 [facility] dical (Prevnar 13) Branch Twinrix (hep a/hep 2015-09-12 Completed Univer sity of b) 00:00:00 [facility] Pneumococcal 13 2015-09-12 Completed Universit y of Conjugate, PCV13 00:00:00 [facility] dical (Prevnar 13) Branch Twinrix (hep a/hep 2015-09-12 Completed Univer sity of b) 00:00:00 [facility] Pneumococcal 13 2015-09-12 Completed Universit y of Conjugate, PCV13 00:00:00 [facility] dical (Prevnar 13) Branch Twinrix (hep a/hep 2015-09-12 Completed Univer sity of b) 00:00:00 [facility] Pneumococcal 13 2015-09-12 Completed Universit y of Conjugate, PCV13 00:00:00 [facility] dical (Prevnar 13) Branch Twinrix (hep a/hep 2015-09-12 Completed Univer sity of b) 00:00:00 [facility] Pneumococcal 13 2015-09-12 Completed Universit y of Conjugate, PCV13 00:00:00 [facility] dical (Prevnar 13) Branch Twinrix (hep a/hep 2015-09-12 Completed Univer sity of b) 00:00:00 [facility] Pneumococcal 13 2015-09-12 Completed Universit y of Conjugate, PCV13 00:00:00 [facility] dical (Prevnar 13) Branch Pneumococcal 13 2015-09-12 Completed Universit y of Conjugate, PCV13 00:00:00 [facility] dical (Prevnar 13) Branch Twinrix (hep a/hep 2015-09-12 Completed Univer sity of b) 00:00:00 [facility] Branch Twinrix (hep a/hep 2015-09-12 Completed Univer sity of b) 00:00:00 [facility] Pneumococcal 13 2015-09-12 Completed Universit y of Conjugate, PCV13 00:00:00 [facility] dical (Prevnar 13) Branch Twinrix (hep a/hep 2015-09-12 Completed Univer sity of b) 00:00:00 [facility] Pneumococcal 13 2015-09-12 Completed Universit y of Conjugate, PCV13 00:00:00 [facility] dical (Prevnar 13) Branch Twinrix (hep a/hep 2015-09-12 Completed Univer sity of b) 00:00:00 [facility] Pneumococcal 13 2015-09-12 Completed Universit y of Conjugate, PCV13 00:00:00 [facility] dical (Prevnar 13) Branch Twinrix (hep a/hep 2015-09-12 Completed Univer sity of b) 00:00:00 [facility] Pneumococcal 13 2015-09-12 Completed Universit y of Conjugate, PCV13 00:00:00 [facility] dical (Prevnar 13) Branch Twinrix (hep a/hep 2015-09-12 Completed Univer sity of b) 00:00:00 [facility] Pneumococcal 13 2015-09-12 Completed Universit y of Conjugate, PCV13 00:00:00 [facility] dical (Prevnar 13) Branch Twinrix (hep a/hep 2015-09-12 Completed Univer sity of b) 00:00:00 [facility] Pneumococcal 13 2015-09-12 Completed Universit y of Conjugate, PCV13 00:00:00 [facility] dical (Prevnar 13) Branch Twinrix (hep a/hep 2015-09-12 Completed Univer sity of b) 00:00:00 [facility] Pneumococcal 13 2015-09-12 Completed Universit y of Conjugate, PCV13 00:00:00 [facility] dical (Prevnar 13) Branch Twinrix (hep a/hep 2015-09-12 Completed Univer sity of b) 00:00:00 [facility] Pneumococcal 13 2015-09-12 Completed Universit y of Conjugate, PCV13 00:00:00 [place] [facility] dical (Prevnar 13) Branch Twinrix (hep a/hep 2015-09-12 Completed Univer sity of b) 00:00:00 [facility] Pneumococcal 13 2015-09-12 Completed Universit y of Conjugate, PCV13 00:00:00 [facility] dical (Prevnar 13) Branch Twinrix (hep a/hep 2015-09-12 Completed Univer sity of b) 00:00:00 [facility] Pneumococcal 13 2015-09-12 Completed Universit y of Conjugate, PCV13 00:00:00 [facility] dical (Prevnar 13) Branch Twinrix (hep a/hep 2015-09-12 Completed Univer sity of b) 00:00:00 [facility] Pneumococcal 13 2015-09-12 Completed Universit y of Conjugate, PCV13 00:00:00 [facility] dical (Prevnar 13) Branch Twinrix (hep a/hep 2015-09-12 Completed Univer sity of b) 00:00:00 [facility] Pneumococcal 13 2015-09-12 Completed Universit y of Conjugate, PCV13 00:00:00 [facility] dical (Prevnar 13) Branch Twinrix (hep a/hep 2015-09-12 Completed Univer sity of b) 00:00:00 [facility] Pneumococcal 13 2015-09-12 Completed Universit y of Conjugate, PCV13 00:00:00 [facility] dical (Prevnar 13) Branch Twinrix (hep a/hep 2015-09-12 Completed Univer sity of b) 00:00:00 [facility] Pneumococcal 13 2015-09-12 Completed Universit y of Conjugate, PCV13 00:00:00 [facility] dical (Prevnar 13) Branch Pneumococcal 13 2015-09-12 Completed Universit y of Conjugate, PCV13 00:00:00 [facility] dical (Prevnar 13) Branch Twinrix (hep a/hep 2015-09-12 Completed Univer sity of b) 00:00:00 [facility] Twinrix (hep a/hep 2015-09-12 Completed Univer sity of b) 00:00:00 [facility] Pneumococcal 13 2015-09-12 Completed Universit y of Conjugate, PCV13 00:00:00 [place] [facility] (Prevnar 13) Branch Twinrix (hep a/hep 2015-09-12 Completed Univer sity of b) 00:00:00 [facility] Pneumococcal 13 2015-09-12 Completed Universit y of Conjugate, PCV13 00:00:00 [place] [facility] (Prevnar 13) Branch Twinrix (hep a/hep 2015-09-12 Completed Univer sity of b) 00:00:00 [facility] Pneumococcal 13 2015-09-12 Completed Universit y of Conjugate, PCV13 00:00:00 [place] [facility] (Prevnar 13) Branch Twinrix (hep a/hep 2015-09-12 Completed Univer sity of b) 00:00:00 [facility] Pneumococcal 13 2015-09-12 Completed Universit y of Conjugate, PCV13 00:00:00 [place] [facility] (Prevnar 13) Branch Twinrix (hep a/hep 2015-09-12 Completed Univer sity of b) 00:00:00 [facility] Pneumococcal 13 2015-09-12 Completed Universit y of Conjugate, PCV13 00:00:00 [facility] dical (Prevnar 13) Branch Twinrix (hep a/hep 2015-09-12 Completed Univer sity of b) 00:00:00 [facility] Pneumococcal 13 2015-09-12 Completed Universit y of Conjugate, PCV13 00:00:00 [facility] dical (Prevnar 13) Branch Twinrix (hep a/hep 2015-09-12 Completed Univer sity of b) 00:00:00 [facility] Influenza Virus 2015-08-01 Completed Universit y of Vaccine Quad IM 3+ 00:00:00 [facility] Influenza Virus 2015-08-01 Completed Universit y of Vaccine Quad IM 3+ 00:00:00 [facility] Influenza Virus 2015-08-01 Completed Universit y of Vaccine Quad IM 3+ 00:00:00 [facility] Influenza Virus 2015-08-01 Completed Universit y of Vaccine Quad IM 3+ 00:00:00 [facility] Influenza Virus 2015-08-01 Completed Universit y of Vaccine Quad IM 3+ 00:00:00 [facility] Influenza Virus 2015-08-01 Completed Universit y of Vaccine Quad IM 3+ 00:00:00 [facility] Influenza Virus 2015-08-01 Completed Universit y of Vaccine Quad IM 3+ 00:00:00 [facility] Influenza Virus 2015-08-01 Completed Universit y of Vaccine Quad IM 3+ 00:00:00 [facility] Influenza Virus 2015-08-01 Completed Universit y of Vaccine Quad IM 3+ 00:00:00 [facility] Influenza Virus 2015-08-01 Completed Universit y of Vaccine Quad IM 3+ 00:00:00 [facility] Influenza Virus 2015-08-01 Completed Universit y of Vaccine Quad IM 3+ 00:00:00 [facility] Influenza Virus 2015-08-01 Completed Universit y of Vaccine Quad IM 3+ 00:00:00 [facility] Influenza Virus 2015-08-01 Completed Universit y of Vaccine Quad IM 3+ 00:00:00 [facility] Influenza Virus 2015-08-01 Completed Universit y of Vaccine Quad IM 3+ 00:00:00 [facility] Influenza Virus 2015-08-01 Completed Universit y of Vaccine Quad IM 3+ 00:00:00 [facility] Influenza Virus 2015-08-01 Completed Universit y of Vaccine Quad IM 3+ 00:00:00 [facility] Influenza Virus 2015-08-01 Completed Universit y of Vaccine Quad IM 3+ 00:00:00 [facility] Influenza Virus 2015-08-01 Completed Universit y of Vaccine Quad IM 3+ 00:00:00 [facility] Influenza Virus 2015-08-01 Completed Universit y of Vaccine Quad IM 3+ 00:00:00 [facility] Influenza Virus 2015-08-01 Completed Universit y of Vaccine Quad IM 3+ 00:00:00 [facility] Influenza Virus 2015-08-01 Completed Universit y of Vaccine Quad IM 3+ 00:00:00 [facility] Influenza Virus 2015-08-01 Completed Universit y of Vaccine Quad IM 3+ 00:00:00 [facility] Influenza Virus 2015-08-01 Completed Universit y of Vaccine Quad IM 3+ 00:00:00 [facility] Influenza Virus 2015-08-01 Completed Universit y of Vaccine Quad IM 3+ 00:00:00 [facility] Influenza Virus 2015-08-01 Completed Universit y of Vaccine Quad IM 3+ 00:00:00 [facility] Influenza Virus 2015-08-01 Completed Universit y of Vaccine Quad IM 3+ 00:00:00 [facility] Influenza Virus 2015-08-01 Completed Universit y of Vaccine Quad IM 3+ 00:00:00 [facility] Influenza Virus 2015-08-01 Completed Universit y of Vaccine Quad IM 3+ 00:00:00 [facility] Vital Signs Vital Name Observation Time Observation Value Comments Source Systolic blood 2020-06-07 16:04:00 133 mm[Hg] Univer sity of pressure [facility] Diastolic blood 2020-06-07 16:04:00 86 mm[Hg] Unive rsity of pressure [facility] Heart rate 2020-06-07 16:04:00 77 /min Universi ty of [facility] Body temperature 2020-06-07 16:04:00 36.67 Dawn Univ ersity of [facility] Body height 2020-06-07 16:04:00 170.2 cm Universi ty of [facility] Body weight 2020-06-07 16:04:00 82.781 kg Universi ty of [facility] BMI 2020-06-07 16:04:00 28.58 kg/m2 Universi ty of [facility] Systolic blood 2020-03-10 13:32:00 132 mm[Hg] Univer sity of pressure [facility] Diastolic blood 2020-03-10 13:32:00 85 mm[Hg] Unive rsity of pressure [facility] Heart rate 2020-03-10 13:32:00 79 /min Universi ty of [facility] Body temperature 2020-03-10 13:32:00 36.83 Dawn Univ ersity of [facility] Body height 2020-03-10 13:32:00 170.2 cm Universi ty of [facility] Body weight 2020-03-10 13:32:00 81.647 kg Universi ty of [facility] BMI 2020-03-10 13:32:00 28.19 kg/m2 Universi ty of [facility] Oxygen saturation in 2020-03-10 13:32:00 98 /min [facility] Arterial blood by [facility] Pulse oximetry Branch Systolic blood 2020-01-21 18:45:00 120 mm[Hg] Univer sity of pressure [facility] Diastolic blood 2020-01-21 18:45:00 65 mm[Hg] Unive rsity of pressure [facility] Heart rate 2020-01-21 18:45:00 68 /min Universi ty of [facility] Body temperature 2020-01-21 18:45:00 37 Dawn Univ ersity of [facility] Body height 2020-01-21 18:45:00 170.2 cm Universi ty of [facility] Body weight 2020-01-21 18:45:00 82.555 kg [facility]i ty of [place] [facility] BMI 2020-01-21 18:45:00 28.51 kg/m2 Universi ty of [facility] Body temperature 2019-11-01 17:55:00 36.22 Dawn Univ ersity of [facility] Branch Body height 2019-11-01 17:55:00 170.2 cm Universi ty of [facility] Body weight 2019-11-01 17:55:00 75.796 kg Universi ty of [facility] BMI 2019-11-01 17:55:00 26.17 kg/m2 Universi ty of [facility] Branch Systolic blood 2019-11-01 15:20:00 117 mm[Hg] Univer sity of pressure [facility] Diastolic blood 2019-11-01 15:20:00 84 mm[Hg] Unive rsity of pressure [facility] Heart rate 2019-11-01 15:20:00 86 /min Universi ty of [facility] Body temperature 2019-11-01 15:20:00 36.28 Dawn Univ ersity of [facility] Respiratory rate 2019-11-01 15:20:00 16 /min Univ ersity of [facility] Body height 2019-11-01 15:20:00 170.2 cm Universi ty of [place] [facility] [place] Body weight 2019-11-01 15:20:00 75.297 kg [facility]i [facility] BMI 2019-11-01 15:20:00 26.00 kg/m2 Universi ty of [facility] Procedures Procedure Date / Time Performing Clinician Source Performed AUTHORIZATION FOR 2020-06-22 06:01:00 [facility]igned, [facility] Name Medical Branch FLU VACC(), 2020-06-07 16:09:49 Tana Venegas [facility] 50-64 YRS, IM, QUAD Medical Bran ch (FLUBLOK) POCT GRP A STREP 2020-03-10 13:35:[address] [facility] (MOLECULAR) Medical Branch COMP. METABOLIC PANEL 2019-11-01 16:45:00 [facility] Tana [facility] ([id number]) Medical Branch LIPID PANEL 2019-11-01 16:45:00 [facility] ([id number])(TOTAL Medical Branch CHOLESTEROL, TRIGLYCERIDES, HDL) NOTICE OF PRIVACY 2019-11-01 14:53:05 Doctor Unassigned, No [facility] PRACTICES Name Medical Branch CONSENT/REFUSAL FOR 2019-11-01 14:52:40 Doctor Unassigned, No [facility] DIAGNOSIS AND TREATMENT Name Medical [place] ASSIGNMENT OF BENEFITS 2019-11-01 14:52:24 Doctor Unassigned, No [facility] Name [facility] Encounters Start End Encounter Admission Attending Care Care Encounter Source Date/Time Date/Time Type Type Clinicians Facility Department ID 2020-12-06 2020-12-06 Outpatient R [facility] [id number] Univers 08:00:00 08:00:00 TANA [id number] ity of [facility] 2020-10-28 2020-10-28 Patient [facility] [id number] Univers 00:00:00 00:00:00 Outreach Shantanu PRIMARY [id number] i ty of [facility] [place] [phone] Ms dical 388 Branch 2020-06-22 2020-06-22 Orders Doctor ALIX 1.2.840.114 [id number] Univers 00:00:00 00:00:00 Only Unassigned, RAMSES [id number] ity of [place] [facility] 4.2.7.2.686 Jim as [phone] [facility] 009 Branch 2020-06-09 2020-06-09 Telephone East, UNIVERSIT 1.2.840.114 [id number] Univers 00:00:00 00:00:00 Tana [facility] [id number] i ty of [place] [id number] [facility] 089 Branch 2020-06-09 2020-06-09 Refill East, UNIVERSIT [id number] Univers 00:00:00 00:00:00 Tana Ortiz [facility] [id number] i ty of CL[place]ICS [place] [id number] [facility] 089 [place] 2020-06-07 2020-06-07 Conservation Officer [facility] UNIVERSIT [id number] Univers 12:08:57 12:23:57 Visit Tana Venegas [facility] [id number] ity of CL[place]ICS [place] [phone] [facility] 316 [place] 2020-06-07 2020-06-07 Outpatient R THEO [facility] [id number] Univers 12:00:00 12:00:00 TANA [id number] [facility] 2020-06-07 2020-06-07 Outpatient R [facility] [id number] Univers 12:00:00 12:00:00 TANA filiberto [facility] 2020-06-07 2020-06-07 Office [facility], [facility] [id number] Univers 10:35:54 11:58:29 Visit Tana Ortiz [facility] [id number] i ty of CL[place]ICS [place] [phone] [facility] 089 [place] 2020-03-17 2020-03-17 Outpatient R [facility] [id number] Univers 12:45:00 12:45:00 Ariadna [facility] 2020-03-17 2020-03-17 [facility] [id number] Univers 12:45:00 12:45:00 ADELIA [facility] 2020-03-13 2020-03-13 Outpatient R [facility] [id number] Univers 13:00:00 13:00:00 TANA [id number] [facility] 2020-03-13 2020-03-13 Outpatient R [facility] [id number] Univers 13:00:00 13:00:00 TANA filiberto [facility] 2020-03-10 2020-03-10 Urgent Pob1, Acute Care Clinic [facility] 1. 2.840.114 [id number] Univers 08:25:26 08:45:26 [facility] [id number] ity of [place] 4.2.7.2.686 Jim as [facility] [phone] Ms issac [address] Office [facility] 2020-03-10 2020-03-10 Outpatient R [facility] [id number] Univers 08:40:00 08:40:00 [id number] ity of [facility] 2020-03-10 2020-03-10 Outpatient R [facility] [id number] Univers 08:40:00 08:40:00 ity of [facility] 2020-03-10 2020-03-10 Outpatient R [facility] [id number] Univers 08:20:00 08:20:00 ity of [facility] 2020-03-10 2020-03-10 Letter Doctor ALIX 1.2.840.114 [id number] Univers 00:00:00 00:00:00 (Out) Unassigned, RAMSES 350.1.13.10 [facility] 4.2.7.2.686 [place] as [id number] [address] 2020-01-21 2020-02-16 [facility] [id number] Univers 13:44:55 07:08:30 Visit Sid [place] 350.1.13.10 ity of [facility] 4.2.7.2.686 [place] CENTER AT [phone] Ms harrynicol ACHARYA [address] [place] [address] 2020-01-31 2020-01-31 Outpatient KAYLA [facility] [id number] Univers 13:00:00 13:00:00 SID [id number] ity of [facility] 2020-01-28 2020-01-28 Outpatient R KAYLA [facility] [id number] Univers 13:00:00 13:00:00 SID Yanes ity of [facility] 2020-01-28 2020-01-28 Outpatient Mauri GARZA [facility] [id number] Univers 13:00:00 13:00:00 SID atkins of [facility] 2020-01-21 2020-01-21 Outpatient [facility] [id number] Univers 15:40:00 15:40:00 SID milly [facility] 2020-01-21 2020-01-21 Outpatient R MACHELLE, [facility] [id number] Univers 10:45:00 10:45:00 SHARAD ity [facility] 2020-01-19 2020-01-19 Telephone Kayla [facility] 1.2.840.114 [id number] Univers 00:00:00 00:00:00 Sid SPECIALTY 350.1.13.10 ity of [facility] 4[place]2.7.2.[place] CENTER AT [id number] Ms issac ACHARYA [address] [place] [address] 2020-01-07 2020-01-07 Outpatient R [facility] [id number] Univers 08:30:00 08:30:00 TANA [id number] ity [facility] 2020-01-07 2020-01-07 Outpatient R [facility] [id number] Univers 08:30:00 08:30:00 [facility] 2020-01-07 2020-01-07 Telemedici [facility] 1.2.840.114 [id number] Univers 07:25:46 07:55:46 ne Visit [facility] HEALTH 350.1.13.10 ity of CL[place] [id number] [address] 2020-01-03 2020-01-03 [facility] [id number] Univers 13:10:00 13:10:00 SID [id number] ity [facility] 2019-11-25 2019-11-25 Telephone [facility] 1.2.840.114 [id number] Univers 00:00:00 00:00:00 Tana Y HEALTH 350.1.13.10 i ty of CL[place] [id number] [address] 2019-11-24 2019-11-24 Telephone [facility], [facility] 1.2.840.114 [id number] Univers 00:00:00 00:00:00 Tana Y HEALTH 350.1.13.10 i ty of CL[place].2.[place] [id number] [address] 2019-11-16 2019-11-16 Telephone MARCELA VenegasIT 1.2.840.114 [id number] Univers 00:00:00 00:00:00 Tana Ortiz [facility] 350.1.13.10 i ty of CLINICS 4[place].2.[place] [id number] [facility] 089 [place] 2019-11-01 2019-11-01 Conservation Officer [facility] UNIVERSIT 1.2.840.114 [id number] Univers 11:11:02 14:04:05 Visit Tana Venegas 350.1.13.10 ity of CL[place]ICS 4[place].2.[place] [phone] [facility] 316 [place] 2019-11-01 2019-11-01 Office Kayla [facility] [id number] Univers 12:50:34 13:48:05 Visit Sid AMADOR 350.1.13.10 it y of Cheri [facility] 4.2.7.2.686 [place] [phone] [facility] 198 [place] 2019-11-01 2019-11-01 Office [facility] [id number] Univers 09:56:01 11:04:40 Visit Tana Ortiz [facility] 350.1.13.10 i ty of CLINICS 4[place]2.[place].2.[place] [id number] [facility] 089 [place] 2019-11-01 2019-11-01 Outpatient R [facility] [id number] Univers 10:00:00 10:00:00 TANA [id number] [facility] 2019-11-01 2019-11-01 Outpatient R [facility] [id number] Univers 10:00:00 10:00:00 TANA ity [facility] 2019-11-01 2019-11-01 Orders Doctor ALIX 1.2.840.114 [id number] Univers 00:00:00 00:00:00 Only Unassigned, RAMSES 350.1.13.10 ity of [place] [facility] 4.2.7.2.686 Jim as [phone] [facility] 009 [place] 2019-11-01 2019-11-01 Telephone Theo [facility] 1.2.840.114 [id number] Univers 00:00:00 00:00:00 [facility] 350.1.13.10 i ty of CLINICS 4[place].2.[place] [id number] [address] 2019-10-07 2019-10-07 Case Paddy [address]104 [id number] Univers 00:00:00 00:00:00 Management Vidhi Cramer [facility] 350.1.13.10 ity of CLINICS 4[place] [id number] [address] 2019-09-14 2019-09-14 [address]840[address]114 [id number] Univers 00:00:00 00:00:00 [facility] 350.1.13.10 i ty of CLINICS 4[place]2.[place] [id number] [address] Results Test Description Test Time Test Comments Results Result Comments Source HEMOGLOBIN A1c 2021-09-20 03:48:27 Test Item Value Reference Range Interpretation Comme nts HEMOGLOBIN A1c (test code = 35148) 5.0 % 4.2-5.6 LIPID [id number] 03:48:14 Test Item Value Reference Range Interpretation [...] MOREINFORMATION , SEE CLIENT ANNOUNCE MENT AT [email or web address] RISK RATIO LDL/HDL 7.00 RATIO <3.55 H (test code = 2238) COMPREHENSIVE METABOLIC [id number] 03:48:14 Test Item Value Reference Range Interpretation Comments GLUCOSE (test code = 82 MG/DL 70-99 2216) BUN (test code = 17 MG/DL -2207) CREATININE (test 1.35 MG/DL 0.80-1.40 code = 221) eGFR (2020 CKD-EPI) 62 >60 (test code = 09128) ML/MIN/1.73 CALC BUN/CREAT (test 13 RATIO 6-28 code = 2235) SODIUM (test code = 140 MEQ/L 429-681 6797) POTASSIUM (test code 4.4 MEQ/L 3.5-5.4 = 2227) CHLORIDE (test code 103 MEQ/L 95-107 = 2214) CARBON DIOXIDE (test 28 MEQ/L 19-31 code = 220) CALCIUM (test code = 9.8 MG/DL 8.5-10.5 2208) PROTEIN, TOTAL (test 6.7 G/DL 6.1-8.3 code = 2228) ALBUMIN (test code = 3.6 G/DL 3.5-5.2 2200) CALC GLOBULIN (test 3.1 G/DL 1.9-3.7 code = 2239) CALC A/G RATIO (test 1.2 RATIO 1.0-2.6 code = 2233) BILIRUBIN, TOTAL 0.6 MG/DL See_Comment [Automated message] (test code = 220) The syste m which generated this result [...] PER [facility], [address] [place] [address] LABORATORY DIRE CTOR: CORTEZ GROVER M.D. CLIA NUMBER [id number] CAP ACCREDITATION N O. [id number] CBC W/AUTO DIFF WITH [id number] 03:06:39 Test Item Value Reference Range Interpretation [...] RBCS 0.00 K/UL 0.00-0.11 (test code = 28315) POCT GRP A STREP (MOLECULAR)2020-03-10 13:45:00 Test Item Value Reference Range Interpretation Comments POCT GP A STREP (test neg Negative - code = 72819-9) Negative SCOTT (test code = SCOTT) accurate development and interpretation of all internal controls Lab Interpretation Normal (test code = 46060-0) [facility])(TOTAL CHOLESTEROL, TRIGLYCERIDES, HDL)2019-11-01 19:51:00 Test Item Value Reference Range Interpretation Comments CHOL (test code = 191 mg/dL 120-200 6153022009) HDL (test code = 43 mg/dL >40 1909797618) HDLC RATIO (test code = See_Comment [Au tomated message] 3111195954) The system [employer] generated this result transmit keyla reference range : <=5.0. The refe rence range was not u sed to interpret th is result as normal/abnormal . TRIG (test code = 173 mg/dL 30-170 H 1515528575) LDL CHOL (test code = 113 mg/dL See_Comment [Auto mated message] 72357-5) The system [employer] generated this result transmit keyla reference range : <=160. The refe rence range was not u sed to interpret th is result as normal/abnormal . VLDL (test code = 35 mg/dL 5-60 3247785505) Lab Interpretation (test Abnormal code = 68165-3) [facility]. METABOLIC PANEL (87095)2019-11-01 19:51:00 Test Item Value Reference Range Interpretation Comments NA (test code = 135 mmol/L 135-145 2554381849) K (test code = 4.5 mmol/L 3.5-5 Slight 7185324835) hemolysis CL (test code = 99 mmol/L 98-108 2734369560) CO2 TOTAL (test code 24 mmol/L 23-31 = 7987107194) AGAP (test code = 2-16 2865679743) BUN (test code = 16 mg/dL 7-23 Slight 5285090573) hemolysis GLUCOSE (test code = 87 mg/dL 70-110 9002577364) CREATININE (test code 1.24 mg/dL 0.6-1.25 = 8828146550) TOTAL BILI (test code 1.9 mg/dL 0.1-1.1 H = 5545996814) CALCIUM (test code = 10.9 mg/dL 8.6-10.6 H 5984821423) T PROTEIN (test code 7.8 g/dL 6.3-8.2 = 0083852474) ALBUMIN (test code = 4.6 g/dL 3.5-5 4157003931) ALK PHOS (test code = 98 U/L 34-122 Slight 2989169425) hemolysis ALTv (test code = 31 U/L 5-50 1742-6) AST(SGOT) (test code 44 U/L 13-40 H Slight = 7479642027) hemolysis eGFR Calculation mL/min/1.73m2 (Non-) (test code = 3999007561) eGFR Calculation mL/min/1.73m2 () (test code = 9593609038) SCOTT (test code = SCOTT) Association of [...] tests). Lab Interpretation Abnormal (test code = 77786-2) [facility] BranchUrinalysis [id number] 22:20:00 Test Item Value Reference Range Interpretation Comments Color (test code = Yellow Yellow,Straw,Pl N COLOR) yellow Clarity (test code = Clear Clear N CLAR) Specific Jacob (test 1.017 1.001-1.035 N code = SPGR) [...] Few Calcium Oxalate CRAIG) /HPF CBC with [id number] 22:05:00 Test Item Value Reference Range Interpretation [...] code = ALYMPH) 0.8 K/cumm 0.5-4.6 N [place] Abs (test code = AMONO) 0.5 K/cumm [...] healthy men or men withnon-prostat ic carcinoma. [id number] 21:28:00 Test Item Value Reference Range Interpretation Comments Phosphorus (test code = PO4) 1.9 mg/dL 2.70-4.50 L Comprehensive Metabolic [id number] 21:28:00 Test Item Value Reference Range Interpretation [...] the National Kidney Foundation,http :[email or web address] ep.nih.gov Lipid [id number] 21:28:00 Test Item Value Reference Range Interpretation Comments Cholesterol (test 215 mg/dL 0-200 H code = CHOL) Triglycerides (test 349 mg/dL 9-200 H code = TRIG) HDL (test code = 37 mg/dL 40-60 L HDL) Chol/HDL (test code 5.8 Ratio 0.0-5.0 H = CHOLPHDL) LDL, Calculated 108 0-130 N (NOTE)RISK O F HEART (test code = LDLC) DISEASEPu blished by [place] Heart AssociationAnal yte Optim al Boderline Increased RiskC HOL <200 200-239 >240TRI G <150 150-199 >200HDL Male: >60 <40HDL Female: >60 <50 LDL < 100 130-15 9 >160 LDL NEAR OPTIMAL IS 100- 129 VLDL (test code = 70 mg/dL 5-40 H VLDL) LDL/HDL (test code = 3 LDLPHDL) [id number] 21:28:00 Test Item Value Reference Range Interpretation Comments GGT (test code = GGT) 74 U/L 8-61 H Lactate [id number] 21:28:00 Test Item Value Reference Range Interpretation Comments LDH (test code = LDH) 180 U/L 135-225 N Uric [id number] 21:28:00 Test Item Value Reference Range Interpretation Comments Uric Acid (test code = UA) 2.1 mg/dL 3.4-7.0 L"
[2021-10-08] MEDS ORDERED: LORAZEPAM 1 MG TABLET ONE (14:48)
--- NOTE | 2021-10-08 15:05 | ER ---
Nurse's Notes [facility] Name: Kehinde Parker Age: 56 yrs Sex: Male : 1965 Arrival Date: 10/08/2021 Time: 12:53 Bed 24 [facility] MD: Diagnosis: Anxiety disorder, unspecified Presentation: 10/08 13:29 Chief complaint: Patient states: " I was seen in the ER last Wed because I was losing ph my vision. They did all kinds of tests and a MRI and didn't find anything and they had me follow up w/ Dr Gaming. I saw him and he wants me to have more blood work done. I'm just starting to feel really anxious and I'm afraid and I haven't been able to eat because I can't see anything and I feel like my vision is getting worse.". Coronavirus screen: Vaccine status: Patient reports being unvaccinated. Ebola Screen: No symptoms or risks identified at this time. Initial Sepsis Screen: Does the patient meet any 2 criteria? No. Patient's initial sepsis screen is negative. Does the patient have a suspected source of infection? No. Patient's initial sepsis screen is negative. Risk Assessment: Do you want to hurt yourself or someone else? Patient reports no desire to harm self or others. 13:29 Method Of Arrival: Ambulatory 13:29 Acuity: MARIE 3 ph 13:36 Onset of symptoms was October 08, 2021. ph Historical: - Allergies: 13:36 No Known Allergies; ph - PMHx: 13:36 None; ph - PSHx: 13:36 knee; Cholecystectomy; ph - Immunization history:: Adult Immunizations unknown. - Social history:: Smoking status: unknown. Screenin:22 Abuse screen: Denies threats or abuse. Nutritional screening: No deficits noted. jd3 Tuberculosis screening: No symptoms or risk factors identified. Fall Risk Ambulatory Aid- None/Bed Rest/Nurse Assist (0 pts). Gait- Normal/Bed Rest/Wheelchair (0 pts) Mental Status- Oriented to own ability (0 pts). Total Markham Fall Scale indicates No Risk (0-24 pts). Assessment: 14:49 General: Appears in no apparent distress. uncomfortable, Behavior is cooperative, vg1 anxious. Pain: Denies pain. Neuro: Level of Consciousness is awake, alert, obeys commands, Oriented to person, place, time, situation. Cardiovascular: Patient's skin is warm and dry. Respiratory: Airway is patent Respiratory effort is even, unlabored. GI: No signs and/or symptoms were reported involving the gastrointestinal system. : No signs and/or symptoms were reported regarding the genitourinary system. EENT: No signs and/or symptoms were reported regarding the EENT system. Derm: Skin is intact, is healthy with good turgor. Musculoskeletal: Circulation, motion, and sensation intact. 15:22 Reassessment: Patient appears in no apparent distress at this time. No changes from jd3 previously documented assessment. Patient and/or family updated on plan of care and expected duration. Pain level reassessed. Patient is alert, oriented x 3, equal unlabored respirations, skin warm/dry/pink. Vital Signs: 13:29 BP 138 / 110; Pulse 71; Resp 18; Temp 98.9; Pulse Ox 98% on R/A; Height 5 ft. 7 in. ph (170.18 cm); 14:49 BP 130 / 92; Pulse 67; Resp 18; Pulse Ox 96% on R/A; vg1 ED Course: 12:53 Patient arrived in ED. mr 13:35 Triage completed. ph 13:36 Arm band placed on. ph 13:48 Monico Chang PA is PHCP. cp 13:48 Monico Hairston MD is Attending Physician. cp 14:17 Suzanna Diaz RN is Primary Nurse. vg1 15:22 Patient has correct armband on for positive identification. Bed in low position. Call jd3 light in reach. Side rails up X 1. 15:22 No provider procedures requiring assistance completed. Patient did not have IV access jd3 during this emergency room visit. Administered Medications: 14:47 Drug: Ativan (LORazepam) 1 mg Route: PO; vg1 15:23 Follow up: Response: No adverse reaction jd3 Outcome: 15:05 Discharge ordered by . cp 15:22 Discharged to home ambulatory. jd3 15:22 Condition: stable 15:22 Discharge instructions given to patient, family, Instructed on discharge instructions, follow up and referral plans. 15:22 Patient left the ED. jd3 Signatures: Sherlyn Pelayo Patricia, RN RN ph PageMonico PA PA cp Davies, Jonathon, RN RN jd3 Suzanna Diaz, RN RN vg1
--- NOTE | 2021-10-08 15:05 | EDPHYS ---
Physician Documentation [facility] Name: Kehinde Parker Age: 56 yrs Sex: Male : 1965 Arrival Date: 10/08/2021 Time: 12:53 Bed 24 Private MD: RIVERA Physician Monico Hairston HPI: 10/08 14:10 This 56 yrs old Male presents to ER via Ambulatory with complaints of Anxiety. cp 14:10 The patient presents to the emergency department with anxiety, over health. cp 14:10 Onset: The symptoms/episode began/occurred today. Past psychiatric history: Prior cp diagnosis: no previous psychiatric diagnosis known. 14:10 Associated signs and symptoms: Pertinent positives; depression, suicide ideation, cp Pertinent negatives: abdominal pain, chest pain, hallucinations, headache, substance abuse. Severity of symptoms: in the emergency department the symptoms are unchanged. 14:10 Patient reports increased anxiety due to recent vision loss and difficulty taking care cp of himself. Patient currently being evaluated by DR Gaming and was sent to hospital to have blood work drawn. Historical: - Allergies: 13:36 No Known Allergies; ph - PMHx: 13:36 None; ph - PSHx: 13:36 knee; Cholecystectomy; ph - Immunization history:: Adult Immunizations unknown. - Social history:: Smoking status: unknown. ROS: 14:15 Constitutional: Negative for body aches, chills, fever, poor PO intake. cp 14:15 Eyes: Positive for vision loss, Negative for pain, redness. cp 14:15 Cardiovascular: Negative for chest pain, palpitations. 14:15 Respiratory: Negative for cough, shortness of breath, wheezing. 14:15 Abdomen/GI: Negative for abdominal pain, nausea, vomiting, and diarrhea. 14:15 Neuro: Negative for altered mental status, dizziness, headache, numbness, syncope, weakness. 14:15 Psych: Positive for anxiety. 14:15 All other systems are negative. Exam: 14:20 Constitutional: The patient appears in no acute distress, alert, awake, cp non-diaphoretic, non-toxic, well developed, well nourished. 14:20 Head/Face: Normocephalic, atraumatic. cp 14:20 Chest/axilla: Inspection: normal. 14:20 Cardiovascular: Rate: normal, Rhythm: regular. 14:20 Respiratory: the patient does not display signs of respiratory distress, Respirations: normal, no use of accessory muscles, no retractions, labored breathing, is not present. 14:20 Abdomen/GI: Exam negative for discomfort, distension, guarding, Inspection: abdomen appears normal. 14:20 Neuro: Orientation: to person, place \T\ time. Mentation: is normal, Motor: moves all fours, strength is normal, Gait: is steady. 14:20 Psych: Behavior/mood is cooperative, anxious, Affect is calm, no active thoughts of suicide, Judgement / Insight is normal. Vital Signs: 13:29 BP 138 / 110; Pulse 71; Resp 18; Temp 98.9; Pulse Ox 98% on R/A; Height 5 ft. 7 in. ph (170.18 cm); 14:49 BP 130 / 92; Pulse 67; Resp 18; Pulse Ox 96% on R/A; vg1 MDM: 13:48 Patient medically screened. cp 15:05 Data reviewed: vital signs, nurses notes. cp 15:05 Counseling: I had a detailed discussion with the patient and/or guardian regarding: the cp historical points, exam findings, and any diagnostic results supporting the discharge/admit diagnosis, the need for outpatient follow up, a psychiatrist, to return to the emergency department if symptoms worsen or persist or if there are any questions or concerns that arise at home. Response to treatment: the patient's symptoms have markedly improved after treatment, and as a result, I will discharge patient. 15:05 ED course: VSS. Patient currently denying thoughts to harm self and/or others. Will cp discharge to home for continued monitoring. Administered Medications: 14:47 Drug: Ativan (LORazepam) 1 mg Route: PO; vg1 15:23 Follow up: Response: No adverse reaction jd3 Disposition: 15:15 Chart complete. cp Disposition Summary: 10/08/21 15:05 Discharge Ordered Location: Home cp Problem: new cp Symptoms: have improved cp Condition: Stable cp Diagnosis - Anxiety disorder, unspecified cp Followup: cp - With: Private Physician - When: 2 - 3 days - Reason: Recheck today's complaints Discharge Instructions: - Discharge Summary Sheet cp - Generalized Anxiety Disorder, Adult cp Forms: - Medication Reconciliation Form cp - Thank You Letter cp - Antibiotic Education cp - Prescription Opioid Use cp Signatures: Daniela Barrett, RN RN ph Charlene, EZIO Marc cp, Jonathon RN RN jd3 Joe, Suzanna RN RN vg1
[2021-10-08 16:03] VITALS: TEMP 98.9
[2021-10-08 16:05] VITALS: BP 130/92; O2SAT 96
== END 2021-10-08 15:22 | disposition home or self-care (01) ==
LOC: ER 12:50
DX: F41.9 Anxiety disorder, unspecified (principal)
CPT/HCPCS: 99283